=== PATIENT | female | born 1950 | race Caucasian/White ===

== ENCOUNTER → 2016-12-25 | Day surgery (SDC) | payer OTHER ==
[2016-11-21 10:01] VITALS: Ht 162.6 cm; Wt 58.2 kg
[~2016-12-25] VITALS: Ht 162.6 cm; Wt 58.2 kg
[~2016-12-25] MED LIST: ALBU1AER9 INH; ASPI81TA28 PO; B-COCAP2 PO; BACTRIM PO; BUPIVACAINE 0.25% 2.5MG/ML PF 10 ML VIAL INFIL ONE; BUPR-79 PO; CHOL400C10 PO; CMD5 PO; FURO80TA63 PO; LABE100T16 PO; LANS30CA63 PO; LEVO50TA6 PO; LIDOCAINE HCL 1% 20 ML VIAL ONE; LIDOCAINE HCL 1% MPF 5 ML VIAL ONE; METO50TA16 PO; METOPROLOL PO; OMEG10007 PO; TIOTCAP INH; WARF7.5T PO
--- NOTE | 2016-12-25 15:22 | History & Physical Bridge - [place] ---
H&P Re-Evaluation Bridge Note: I have examined the patient, reviewed the History & Physical and in the interval since the performance of the History & Physical I have noted the following changes of clinical significance: No changes noted
--- NOTE | 2016-12-25 15:56 | Discharge Instructions ---
Discharge Instructions Date of Service Dec 25, 2016. Visit Reason for Visit: Low Back Pain Discharge Discharge Diagnosis / Problem: chronic low back pain Discharge Goals Goal(s): Decrease discomfort, Improve function Activity Recommendations Activity Limitations: resume your previous activity Anesthesia . Post Anesthesia Instructions: If you have had General Anesthesia or IV Sedation: * Do not drive today. * Resume driving when surgeon permits. * Do not make important decisions or sign legal documents today. * Call surgeon for: 1. Temperature elevations greater than 101 degrees F. 2. Uncontrollable pain. 3. Excessive bleeding. 4. Persistent nausea and vomiting. 5. Medication intolerance (nausea, vomiting or rash). * For nausea and vomiting use only clear liquids such as: tea, soda, bouillon until nausea subsides, then gradually increase diet as tolerated. * If you have any concerns or questions, call your surgeon's office. If physician is unavailable and it is an emergency, call 911 or go to the nearest emergency room. . Diet Recommendations Recommended Home Diet: resume previous diet Procedures Procedures Performed: Bilateral L4-5 and L5-S1 Medial Branch Blocks Pending Studies Studies pending at discharge: no Medical Emergencies . Who to Call and When: Medical Emergencies: If at any time you feel your situation is an emergency, please call 911 immediately. . Non-Emergent Contact Non-Emergency issues call your: Specialist . . "Provider Documentation" section prepared by Kiran Martinez.
[2016-12-25 16:14] VITALS: BP 123/76; PULSE 64; O2SAT 99
--- NOTE | 2016-12-25 16:32 | OPERATIVE REPORT ---
DATE OF OPERATION: 12/25/2016 PREOPERATIVE DIAGNOSES: Chronic low back pain and lumbar facet arthropathy bilaterally at L4-L5 and L5-S1. POSTOPERATIVE DIAGNOSES: Same. PROCEDURE: Bilateral L4-L5 and L5-S1 medial branch blocks. INDICATIONS: The patient is a 66-year-old white female who has had problems with low back area. She is localizing her pain to the L5-S1 region bilaterally, worse with twisting and standing. Imaging revealed significant facet joint signal throughout her lower lumbar region, most pronounced at L4-L5, also L5-S1. She presents today for bilateral L4-L5 and L5-S1 medial branch blocks to confirm that this is indeed generating the intense pain that she has in her back. PHYSICAL EXAMINATION: GENERAL: Pleasant female seated comfortably. MUSCULOSKELETAL: Lumbar paraspinal muscles were palpated, particularly point tender over L5-S1 and also L4-L5. This pain got worse with extension, extension rotation. She had no focal weakness of the lower extremity and negative sacral distraction and compression maneuver. CONSENT: Verbal and written consent was obtained from the patient. Risks and benefits were reviewed. Risks include, but are not limited to abscess and allergic reaction. She wishes to proceed. DESCRIPTION OF PROCEDURE: The patient was taken back to the special procedures room of [facility]. She was maintained in a prone position. Backside was cleansed with Betadine x3 and a dry sterile dressing was applied. Fluoroscope was used to identify the left L4 transverse process junction, the left L5 transverse process junction and the left sacral ala. The overlying skin was anesthetized with 1.25 mL of lidocaine 1% with a 25-gauge 1.5-inch needle. A 25-gauge 3.5-inch spinal needle was then placed contacting the bony target at each site. She then underwent injection after negative aspiration of 1 mL of bupivacaine 0.25%. Then, the right L5 transverse process junction, the right sacral ala and the right L4 transverse process junction were fluoroscopically identified. Overlying skin anesthetized again with 1.25 mL of lidocaine 1% with a 25-gauge 1.5-inch needle at each site. She then underwent placement of a 25-gauge 3.5-inch spinal needle at each site contacting bone under fluoroscopic guidance. She then underwent injection after negative aspiration of 1 mL of bupivacaine 0.25% at L4-L5 transverse process and at the sacral ala. DISPOSITION: 1. The patient is taken out into the discharge recovery area, where she will be discharged home once discharge criteria have been met. 2. Follow up in the [facility] office in 2-4 weeks. I attest to the content of the Intraoperative Record and any orders documented therein. Any exceptio ns are noted below.
== END | disposition home or self-care (01) ==
LOC: X.SURG 14:02
PROVIDERS: ATTEND Physical Medicine & Rehabilitation
DX: M54.5 Low back pain (principal); M51.86 Other intervertebral disc disorders, lumbar region; F41.9 Anxiety disorder, unspecified; J45.909 Unspecified asthma, uncomplicated; F32.9 Major depressive disorder, single episode, unspecified; N18.6 End stage renal disease; E03.9 Hypothyroidism, unspecified; M06.9 Rheumatoid arthritis, unspecified; Z87.81 Personal history of (healed) traumatic fracture; Z90.710 Acquired absence of both cervix and uterus; Z90.49 Acquired absence of other specified parts of digestive tract; Z88.0 Allergy status to penicillin; Z91.041 Radiographic dye allergy status; Z88.8 Allergy status to other drugs, medicaments and biological substances; Z82.0 Family history of epilepsy and other diseases of the nervous system

== ENCOUNTER → 2017-01-07 | Outpatient (CLI) | payer OTHER ==
[~2017-01-07] MED LIST changes: -BACTRIM PO; -BUPIVACAINE 0.25% 2.5MG/ML PF 10 ML VIAL INFIL ONE; -LIDOCAINE HCL 1% 20 ML VIAL ONE; -LIDOCAINE HCL 1% MPF 5 ML VIAL ONE
--- NOTE | 2017-01-07 11:27 | DIAGNOSTIC IMAGING REPORT ---
ULTRASOUND ABDOMEN COMPLETE CLINICAL HISTORY: Generalized abdominal pain. COMPARISON STUDY: Abdominal CT dated 09/13/2015. Abdominal ultrasound dated 09/13/2015 and 03/07/2015. TECHNIQUE: Real-time, grayscale, and color flow sonography of the abdomen was performed. Images are reviewed in the transverse and longitudinal planes. FINDINGS: Liver: The liver is normal in size and echotexture. There is central intrahepatic biliary ductal dilatation. The main portal vein is patent. Gallbladder: The gallbladder is surgically absent. The common bile duct measures up to 0.8 cm in diameter. Pancreas: A 9 mm cystic focus is again suggested in the pancreatic head. This is unchanged from 2015 and may represent a small IPMN. Visualized portions of the pancreatic head and body are otherwise normal in appearance. The splenic vein is patent. Spleen: The spleen is normal in size and echotexture, measuring 9.8 cm in length. Kidneys: The kidneys are atrophic. There is no hydronephrosis. The right kidney measures 6.3 cm in length and the left kidney measures 7.8 cm in length. No shadowing calculi are identified. Abdominal vasculature: Visualized portions of the abdominal aorta are normal in caliber. Ascites: None. IMPRESSION: 1. No acute sonographic abnormality is identified. 2. Status post cholecystectomy. 3. The kidneys are atrophic. Electronically signed by: Max Alaniz M.D. 01/07/2017 11:25 AM Dictated Date/Time: 01/07/2017 11:22 AM
== END | disposition home or self-care (01) ==
LOC: C.ULTR 10:28
PROVIDERS: ATTEND Internal Medicine Gastroenterology
DX: R11.2 Nausea with vomiting, unspecified (principal); R10.13 Epigastric pain; N26.1 Atrophy of kidney (terminal)

== ENCOUNTER → 2017-01-13 | Day surgery (SDC) | payer OTHER ==
[2017-01-08 14:37] VITALS: BMI 22.0
[~2017-01-13] VITALS: Ht 162.6 cm; Wt 58.2 kg
[~2017-01-13] MED LIST changes: +LIDOCAINE HCL 2% 2 ML VIAL (20MG/ML) ONE; +METOPROLOL TARTRATE 1 MG/ML VIAL ONE; +PROPOFOL IV EMULSION 10 MG/ML 20 ML VIAL IV ONE
[2017-01-13 12:12] VITALS: Ht 162.6 cm; Wt 58.2 kg
--- NOTE | 2017-01-13 13:04 | Endo History and Physical ---
History & Physical Date of Service: Jan 13, 2017. Chief Complaint: nausea /vomiting epigastric pain Referring Physician: Dr Silverman History of Present Illness For EGD Past Medical History Atrial Fibrillation, Osteoporosis, Arthritis, Asthma, Anxiety, Reflux, Hypertension, COPD, Thyroid Disease, Kidney Disease, CVA/TIA, Depression, [place] Past Surgical History Hx Cardiac Surgery: Yes (HEART CATH, NO STENT) Hx Internal Defibrillator: Yes (AMRIK, OLIVER BSO, APPY, LAPAROTOMY FOR BENIGN TUMOR) Hx Pacemaker: No Hx Abdominal Surgery: No Hx of Implantable Prosthesis: No Hx Post-Op Nausea and Vomiting: No Hx Cancer Surgery: No Hx Thoracic Surgery: No Hx Orthopedic: Yes (C3-5 FUSION (LIMITED L-R AND DOWN), RT FOOT X5, R THUMB JNT REPLACEMENT) Hx Urinary Tract Surgery: No (LT/RT CTR) Family History IBD Social History Smoking Status: Former Smoker Hx Substance Use: No Hx Alcohol Use: No Allergies Coded Allergies: Famotidine (Verified Allergy, Severe, SHORTNESS OF BREATH, 01/08/17) Penicillins (Verified Allergy, Severe, SHORTNESS OF BREATH, 01/08/17) edema and airway Prednisone (Verified Allergy, Severe, rash, 01/08/17) "RED ALL OVER, SEVERE ITCHING" Deflazacort (Verified Allergy, Intermediate, HIVES TO ADVACORT, 01/08/17) "RED ALL OVER, FELT LIKE I WAS ON FIRE" Iodinated Diagnostic Agents (Verified Allergy, Intermediate, HIVES, ) Pentazocine (Verified Allergy, Intermediate, HIVES, 01/08/17) Current Medications Reported Home Medications Medications Dose Route/Sig Max Daily Dose Days Date Category Dose Instructions [Metoprolol] PO UD 01/08/17 Reported NEW PRESCRIPTION PATIENT RECEIVING 01-09-17 AND UNSURE DOSAGE OR INSTRUCTIONS Coumadin (Warfarin Sodium) 7.5 Mg Tab 7.5 Mg PO 5XWK 11/21/16 Reported SUN,TUES,WED,THURS,SAT Vitamin D 400 (Cholecalciferol) 400 Unit Chw Unknown Dose PO WK 02/08/16 Reported Sundays Nephrocaps (Vitamin B Complex/Vit C/Folic Acid) 1 Cap Cap 1 Cap PO QPM 02/08/16 Reported Wellbutrin Sr (Bupropion HCl) 150 Mg Ertab 150 Mg PO QAM 11/28/15 Reported Levothyroxine Sodium 50 Mcg Tab 1 Tab PO QAM 09/13/15 Reported Spiriva Handihaler (Tiotropium [place]) 18 Mcg/ Aerp 1 Cap INH QAM 05/19/15 Reported Proair Hfa (Albuterol Sulfate) 108 Mcg/ Aer 2 Puffs INH QID PRN 05/19/15 Reported Prevacid (Lansoprazole) 30 Mg Cap 30 Mg PO QAM 03/23/15 Reported Normodyne (Labetalol HCl) 100 Mg Tab 200 Mg PO BID 03/23/15 Reported Coumadin (Warfarin Sod) 5 Mg Tab 5 Mg PO 2XWK 11/30/14 Reported MON,FRI Aspirin Ec (Aspirin) 81 Mg Tab 81 Mg PO HS 07/04/14 Reported [place]-3 (Fish Oil) 1 Ea Cap 1 Cap PO BID 07/04/14 Reported Vital Signs Weight (Kilograms): 58.18 Height (Feet): 5 Height (Inches): 4 Date Time Temp Pulse Resp B/P Pulse Ox O2 Delivery O2 Flow Rate FiO2 01/13/17 12:29 36.6 71 18 155/71 94 Room Air Physical Exam General Appearance: WD/WN Respiratory/Chest: Respiratory effort: no dyspnea Cardiovascular: Heart Auscultation: RRR Abdomen: Inspection & Palpation: soft Assessment and Plan Nausea for EGD
[2017-01-13 13:45] LABS: BUN/CREATININE RATIO 10.3 (10-20); CALCIUM 8.7 mg/dl (8.5-10.1); CREATININE 2.7 mg/dl (0.60-1.20); POTASSIUM 3.6 mmol/L (3.5-5.1)
--- NOTE | 2017-01-13 14:07 | Discharge Instructions ---
Endoscopy Patient Instructions Date / Procedure(s) Performed Jan 13, 2017. EGD Allergy Information Coded Allergies: Famotidine (Verified Allergy, Severe, SHORTNESS OF BREATH, 01/08/17) Penicillins (Verified Allergy, Severe, SHORTNESS OF BREATH, 01/08/17) edema and airway Prednisone (Verified Allergy, Severe, rash, 01/08/17) "RED ALL OVER, SEVERE ITCHING" Deflazacort (Verified Allergy, Intermediate, HIVES TO ADVACORT, 01/08/17) "RED ALL OVER, FELT LIKE I WAS ON FIRE" Iodinated Diagnostic Agents (Verified Allergy, Intermediate, HIVES, ) Pentazocine (Verified Allergy, Intermediate, HIVES, 01/08/17) Discharge Date / Findings Jan 13, 2017. Normal EGD Medication Instructions Stopped Medication(s): coumadin stopped on Wednesday 01/10 Restart Stopped Medication(s): resume meds Reported Home Medications Medications Dose Route/Sig Max Daily Dose Days Date Category Dose Instructions [Metoprolol] PO UD 01/08/17 Reported NEW PRESCRIPTION PATIENT RECEIVING 01-09-17 AND UNSURE DOSAGE OR INSTRUCTIONS Coumadin (Warfarin Sodium) 7.5 Mg Tab 7.5 Mg PO 5XWK 11/21/16 Reported SUN,,FRI,,SAT Vitamin D 400 (Cholecalciferol) 400 Unit Chw Unknown Dose PO WK 02/08/16 Reported Sundays Nephrocaps (Vitamin B Complex/Vit C/Folic Acid) 1 Cap Cap 1 Cap PO QPM 02/08/16 Reported Wellbutrin Sr (Bupropion HCl) 150 Mg Ertab 150 Mg PO QAM 11/28/15 Reported Levothyroxine Sodium 50 Mcg Tab 1 Tab PO QAM 09/13/15 Reported Spiriva Handihaler (Tiotropium [place]) 18 Mcg/ Aerp 1 Cap INH QAM 05/19/15 Reported Proair Hfa (Albuterol Sulfate) 108 Mcg/ Aer 2 Puffs INH QID PRN 05/19/15 Reported Prevacid (Lansoprazole) 30 Mg Cap 30 Mg PO QAM 03/23/15 Reported Normodyne (Labetalol HCl) 100 Mg Tab 200 Mg PO BID 03/23/15 Reported Coumadin (Warfarin Sod) 5 Mg Tab 5 Mg PO 2XWK 11/30/14 Reported MON,FRI Aspirin Ec (Aspirin) 81 Mg Tab 81 Mg PO HS 07/04/14 Reported [place]-3 (Fish Oil) 1 Ea Cap 1 Cap PO BID 07/04/14 Reported Provider Instructions Activity Restrictions - No exercising or heavy lifting for 24 hours. - Do not drink alcohol the day of the procedure. - Do not drive a car or operate machinery until the day after the procedure. - Do not make any important decisions or sign important papers in 24 hours after the procedure. Following Day: - Return to full activity which may include returning to work/school. Diet Start your diet with liquids and light foods (jello, soup, juice, toast). Then eat your usual diet if not nauseated. Treatment For Common After Affects For mild abdominal pain, bloating, or excessive gas: - Rest - Eat lightly - Lie on right side Follow-Up Information Follow-up with Dr Silverman as scheduled Anesthesia Information What You Should Know You have had a procedure that required some medicine to reduce anxiety and discomfort. This treatment is called moderate sedation. After receiving the treatment, you may be sleepy, but you will be able to breathe on your own. The effects of the treatment may last for several hours. Follow these instructions along with Activity/Diet recommendations noted above: * Do NOT do anything where dizziness or clumsiness would be dangerous. * Rest quietly at home today, then you can be up and about tomorrow. * Have a responsible person stay with you the rest of today. * You may have had an I.V. today. If so, you may take the dressing off later today. Recommendations Call your doctor if: * Trouble breathing * Continuous vomiting for more than 24 hours * Temperature above 101 degrees * Severe abdominal pain or bloating * Pain not relieved by pain medicine ordered * There is increased drainage or redness from any incision * A large amount of rectal bleeding greater than 2-3 tablespoons. (If you had a polyp/s removed or have hemorrhoids, a small amount of blood - from the rectum is to be expected.) * You have any unanswered questions or concerns. IN THE EVENT OF A SERIOUS EMERGENCY, GO TO THE NEAREST EMERGENCY ROOM Your discharge instructions were prepared by provider Osmin Wong. Patient Instructions Signature Page Milly Tubbs Patient (or Guardian) Signature/Date: I have read and understand the instructions given to me by my caregivers. Caregiver/RN/Doctor Signature/Date: The above-named patient and/or guardian has received patient instructions on this date. + Original Patient Signature Page (only) stays with chart. Please make copy for patient.
--- NOTE | 2017-01-13 14:14 | GI REPORT ---
Procedure Date: 01/13/2017 1:04 PM Procedure: Upper GI endoscopy Indications: Epigastric abdominal pain, Nausea with vomiting Medicines: Propofol total dose 180 mg IV, Metoprolol 5 mg IV, Lidocaine 40 mg IV Complications: No immediate complications. Estimated Blood Loss: Estimated blood loss was minimal. Procedure: Pre-Anesthesia Assessment: - Prior to the procedure, a History and Physical was performed, and patient medications, allergies and sensitivities were reviewed. The patient's tolerance of previous anesthesia was reviewed. - The risks and benefits of the procedure and the sedation options and risks were discussed with the patient. All questions were answered and informed consent was obtained. After obtaining informed consent, the endoscope was passed under direct vision. Throughout the procedure, the patient's blood pressure, pulse, and oxygen saturations were monitored continuously. The scope was introduced through the mouth, and advanced to the second part of duodenum. The upper GI endoscopy was accomplished without difficulty. The patient tolerated the procedure well. Findings: Biopsies were taken with a cold forceps in the 2nd part of the duodenum for histology. The esophagus was normal. The stomach was normal. The examined duodenum was normal. Impression: - Normal esophagus. - Normal stomach. - Normal examined duodenum. - Biopsies were taken with a cold forceps for histology in the 2nd part of the duodenum. Recommendation: - Discharge patient to home (ambulatory). - Continue present medications. - Await pathology results. - Return to GI office as previously scheduled. Osmin Wong M.D. Osmin Wong MD 01/13/2017 2:13:20 PM This report has been signed electronically. Note Initiated On: 01/13/2017 1:04 PM I attest to the content of the Intraoperative Record and orders documented therein, exceptions below
[2017-01-13 14:46] VITALS: BP 103/65; PULSE 80; O2SAT 98
--- NOTE | 2017-01-13 16:25 | Anesthesiology Progress Note ---
Anesthesia Post Op Note Date & Time Jan 13, 2017 at 15:11 Vital Signs Pain Intensity: 0 Vital Signs Past 12 Hours Date Time Temp Pulse Resp B/P Pulse Ox O2 Delivery O2 Flow Rate FiO2 01/13/17 14:46 80 18 103/65 98 Room Air 01/13/17 14:31 87 18 114/60 98 Mask 2 01/13/17 14:17 97 Mask 5 01/13/17 14:16 97 18 113/55 92 Room Air 01/13/17 12:29 36.6 71 18 155/71 94 Room Air Notes Mental Status: alert / awake / arousable, participated in evaluation Pt Amnestic to Procedure: Yes Nausea / Vomiting: adequately controlled Pain: adequately controlled Airway Patency, RR, SpO2: stable & adequate BP & HR: stable & adequate Hydration State: stable & adequate Anesthetic Complications: no major complications apparent The patient is a 66 y/o female with a h/o Asthma, HTN, paroxysmal Afib, GERD , ulcers, OA, CVA ( 15 years ago), hypothyroidism, ESRD on HD ([facility]) s/p EGD with Dr. Wong. Preoperatively, the patient was noted to be in atrial fibrillation. She says she can feel when she goes into atrial fibrillation as she has had paroxysmal atrial fibrillation for which she is on Coumadin for at least two years. She believes her last episode was at least one month ago and can last up to several hours before spontaneously converting to NSR. She was asymptomatic denying any chest pain, shortness of breath, lightheaded or dizziness. Her last dose of Coumadin was on Friday (01/10/17). The patient's HR was fluctuating between 80s and low 100s. She did take her metoprolol today. She had a stress test 01/12 which showed no ischemia EF 55-60% and a cardiac cath in 2013 showing minimal plaque with no occlusive disease. I tried to call the patient's PCP Jennifer Silverman regarding the patient's HR however she was out of the office. I was only able to get a hold of another PA , Anabella Saeed who saw the patient only once for bronchitis. She stated she was not very familiar with the patient and confirmed that the patient does not have a compounder and that the Coumadin clinic manages her anticoagulation. I therefore spoke to Dr. Dupree regarding the patient as her HR would occasionally rise into the low 110s. He stated that as long as she remains asymptomatic that no further evaluation or treatment would be necessary and recommended that she follow up with her Coumadin clinic for recommendations on when to restart her Coumadin. During the procedure the patient was given metoprolol 5mg IV which improved her HR to the 80s where it remained throughout her time in recovery as well. Her BP remained stable in the 120s/60s. I spoke to the patient and her daughter in recovery. I informed them that they should call the Coumadin clinic today to get instructions on when and how to restart her Coumadin as she may require a bridge depending on her last INR. I stressed the importance of this explaining to the patient and her daughter that the patient is at increased risk of stroke due to her atrial fibrillation and needs to ensure she is properly anticoagulated to prevent stroke. I instructed the patient to call her PCP for a follow up appointment to ensure she remained rate controlled and/ or reverted into NSR. She understands and agrees. I also instructed the patient to go the ED if she experiences any chest pain, shortness of breath, rapid heart rate, lightheaded or dizziness, changes in vision, confusion or with any other concerns. She understands and agrees.
== END | disposition home or self-care (01) ==
LOC: C.GI 11:59
PROVIDERS: ATTEND Internal Medicine Gastroenterology
DX: R11.2 Nausea with vomiting, unspecified (principal); R10.13 Epigastric pain; I48.91 Unspecified atrial fibrillation; I12.0 Hypertensive chronic kidney disease with stage 5 chronic kidney disease or end stage renal disease; N18.6 End stage renal disease; Z99.2 Dependence on renal dialysis; J44.9 Chronic obstructive pulmonary disease, unspecified; J45.909 Unspecified asthma, uncomplicated; F32.9 Major depressive disorder, single episode, unspecified; Z98.890 Other specified postprocedural states; I25.2 Old myocardial infarction; Z88.0 Allergy status to penicillin; Z90.89 Acquired absence of other organs; Z90.49 Acquired absence of other specified parts of digestive tract; Z86.73 Personal history of transient ischemic attack (TIA), and cerebral infarction without residual deficits; F17.200 Nicotine dependence, unspecified, uncomplicated; Z79.82 Long term (current) use of aspirin; Z79.01 Long term (current) use of anticoagulants

== ENCOUNTER → 2017-01-28 | Outpatient (CLI) | payer OTHER ==
[~2017-01-28] MED LIST changes: -LIDOCAINE HCL 2% 2 ML VIAL (20MG/ML) ONE; -METOPROLOL TARTRATE 1 MG/ML VIAL ONE; -PROPOFOL IV EMULSION 10 MG/ML 20 ML VIAL IV ONE
--- NOTE | 2017-01-28 12:18 | DIAGNOSTIC IMAGING REPORT ---
FLUOROSCOPIC SMALL BOWEL FOLLOW-THROUGH CLINICAL HISTORY: Nausea and vomiting. Chronic constipation and generalized abdominal pain. COMPARISON STUDY: Abdominal CT dated 09/13/2015. TECHNIQUE: An abdominal funeral home associate radiograph was performed. The patient then consumed several cups of thin barium and a small follow-through was performed. Overhead radiographs and spot compression images were obtained. FINDINGS: The abdominal funeral home associate radiograph shows a nonobstructed abdominal bowel gas pattern and significant constipation. No evidence of intraperitoneal free air is seen. Cholecystectomy clips are noted in the right upper quadrant. Phlebolith are identified in the pelvis. The skeletal structures are osteopenic. Chronic deformity of the right ilium is unchanged. There is evidence of previous compression fracture with vertebroplasty involving T12. On the small bowel follow-through the stomach and duodenum appear normal in configuration. There is delayed transit time with contrast identified in the colon at 180 minutes. The small bowel mucosal pattern is normal. There is no evidence of stricture or mass. The distal/terminal ileum are normal in appearance on the spot compression views. Fluoroscopy time: 0.5 minutes. Fluoroscopic images: 4 IMPRESSION: 1. Delayed transit time through the small bowel. Contrast reached the colon at 3 hours. 2. Otherwise unremarkable small bowel follow-through. 3. Constipation. Electronically signed by: Max Alaniz M.D. 01/28/2017 12:16 PM Dictated Date/Time: 01/28/2017 12:14 PM
== END | disposition home or self-care (01) ==
LOC: C.RAD 08:30
PROVIDERS: ATTEND Internal Medicine Gastroenterology
DX: R11.10 Vomiting, unspecified (principal); K59.01 Slow transit constipation

== ENCOUNTER → 2017-04-03 | Day surgery (SDC) | payer OTHER ==
[2017-03-05 15:11] VITALS: Ht 162.6 cm; Wt 58.2 kg
[~2017-04-03] VITALS: Ht 162.6 cm; Wt 58.2 kg
[~2017-04-03] MED LIST changes: -LABE100T16 PO; -METOPROLOL PO
== END ==
LOC: C.PAT 10:56 → EDSTATUS 13:00
PROVIDERS: ATTEND Physical Medicine & Rehabilitation
DX: M54.5 Low back pain (principal)

== ENCOUNTER → 2017-05-05 | Day surgery (SDC) | payer OTHER ==
[2017-04-24 09:09] VITALS: Ht 162.6 cm; Wt 58.2 kg
[~2017-05-05] VITALS: Ht 162.6 cm; Wt 58.2 kg
[~2017-05-05] MED LIST changes: +EpHEDrine SULFATE 50MG/5ML SYR ONE; +LIDOCAINE HCL 2% 2 ML VIAL (20MG/ML) ONE; +PROPOFOL IV EMULSION 10 MG/ML 20 ML VIAL IV ONE
[2017-05-05 13:38] LABS: PROTHROMBIN TIME (PATIENT) 33.9 SECONDS (9.0-12.0)
--- NOTE | 2017-05-05 13:51 | Endo History and Physical ---
History & Physical Date of Service: May 05, 2017. Chief Complaint: pretransplant evaluation Referring Physician: Dr. Wong History of Present Illness For colonoscopy Past Medical History Atrial Fibrillation, Osteoporosis, Arthritis, Asthma, Anxiety, Reflux, Hypertension, COPD, Thyroid Disease, Kidney Disease, CVA/TIA, Depression, [place] Past Surgical History Hx Cardiac Surgery: Yes (HEART CATH NO STENT) Hx Internal Defibrillator: No Hx Pacemaker: No Hx Abdominal Surgery: Yes (AMRIK, OLIVER BSO, APPY, LAPAROTOMY FOR BENIGN TUMOR) Hx of Implantable Prosthesis: No Hx Post-Op Nausea and Vomiting: No Hx Cancer Surgery: No Hx Thoracic Surgery: No Hx Orthopedic: Yes (ACDF C3-5, RT FOOT X 5, RIGHT THUMB JOINT REPLACEMENT) Hx Urinary Tract Surgery: No Family History IBD Social History Smoking Status: Former Smoker Hx Substance Use: No Hx Alcohol Use: No Allergies Coded Allergies: Famotidine (Verified Allergy, Severe, SHORTNESS OF BREATH, 04/24/17) Penicillins (Verified Allergy, Severe, SHORTNESS OF BREATH, 04/24/17) edema and airway Prednisone (Verified Allergy, Severe, rash, 04/24/17) "RED ALL OVER, SEVERE ITCHING" Deflazacort (Verified Allergy, Intermediate, HIVES TO ADVACORT, 04/24/17) "RED ALL OVER, FELT LIKE I WAS ON FIRE" Iodinated Diagnostic Agents (Verified Allergy, Intermediate, HIVES, ) Pentazocine (Verified Allergy, Intermediate, HIVES, 04/24/17) Current Medications Reported Home Medications Medications Dose Route/Sig Max Daily Dose Days Date Category Dose Instructions Lasix (Furosemide) 80 Mg Tab 80 Mg PO BID 04/24/17 Reported Lopressor (Metoprolol Tartrate) 50 Mg Tab 50 Mg PO BID 03/05/17 Reported Coumadin (Warfarin Sodium) 7.5 Mg Tab 7.5 Mg PO 5XWK 11/21/16 Reported SUN,TUES,WED,,SAT Vitamin D 400 (Cholecalciferol) 400 Unit Chw Unknown Dose PO WK 02/08/16 Reported Sundays Nephrocaps (Vitamin B Complex/Vit C/Folic Acid) 1 Cap Cap 1 Cap PO QPM 02/08/16 Reported Wellbutrin Sr (Bupropion HCl) 150 Mg Ertab 150 Mg PO QAM 11/28/15 Reported Levothyroxine Sodium 50 Mcg Tab 1 Tab PO QAM 09/13/15 Reported Spiriva Handihaler (Tiotropium [place]) 18 Mcg/ Aerp 1 Cap INH QAM 05/19/15 Reported Proair Hfa (Albuterol Sulfate) 108 Mcg/ Aer 2 Puffs INH QID PRN 05/19/15 Reported Prevacid (Lansoprazole) 30 Mg Cap 30 Mg PO QAM 03/23/15 Reported Coumadin (Warfarin Sod) 5 Mg Tab 5 Mg PO 2XWK 11/30/14 Reported MON,FRI Aspirin Ec (Aspirin) 81 Mg Tab 81 Mg PO HS 07/04/14 Reported [place]-3 (Fish Oil) 1 Ea Cap 1 Cap PO BID 07/04/14 Reported Vital Signs Weight (Kilograms): 58.18 Height (Feet): 5 Height (Inches): 4 Physical Exam General Appearance: + thin Respiratory/Chest: Respiratory effort: no dyspnea Cardiovascular: Heart Auscultation: RRR Abdomen: Inspection & Palpation: soft Assessment and Plan pretransplant evaluation for colonoscopy
--- NOTE | 2017-05-05 14:51 | Discharge Instructions ---
Endoscopy Patient Instructions Date / Procedure(s) Performed May 05, 2017. Colonoscopy Allergy Information Coded Allergies: Famotidine (Verified Allergy, Severe, SHORTNESS OF BREATH, 04/24/17) Penicillins (Verified Allergy, Severe, SHORTNESS OF BREATH, 04/24/17) edema and airway Prednisone (Verified Allergy, Severe, rash, 04/24/17) "RED ALL OVER, SEVERE ITCHING" Deflazacort (Verified Allergy, Intermediate, HIVES TO ADVACORT, 04/24/17) "RED ALL OVER, FELT LIKE I WAS ON FIRE" Iodinated Diagnostic Agents (Verified Allergy, Intermediate, HIVES, ) Pentazocine (Verified Allergy, Intermediate, HIVES, 04/24/17) Discharge Date / Findings May 05, 2017. polyps, diverticulosis Medication Instructions Restart Stopped Medication(s): resume meds Reported Home Medications Medications Dose Route/Sig Max Daily Dose Days Date Category Dose Instructions Lasix (Furosemide) 80 Mg Tab 80 Mg PO BID 04/24/17 Reported Lopressor (Metoprolol Tartrate) 50 Mg Tab 50 Mg PO BID 03/05/17 Reported Coumadin (Warfarin Sodium) 7.5 Mg Tab 7.5 Mg PO 5XWK 11/21/16 Reported SUN,TU,WED,,SAT Vitamin D 400 (Cholecalciferol) 400 Unit Chw Unknown Dose PO WK 02/08/16 Reported Sundays Nephrocaps (Vitamin B Complex/Vit C/Folic Acid) 1 Cap Cap 1 Cap PO QPM 02/08/16 Reported Wellbutrin Sr (Bupropion HCl) 150 Mg Ertab 150 Mg PO QAM 11/28/15 Reported Levothyroxine Sodium 50 Mcg Tab 1 Tab PO QAM 09/13/15 Reported Spiriva Handihaler (Tiotropium [place]) 18 Mcg/ Aerp 1 Cap INH QAM 05/19/15 Reported Proair Hfa (Albuterol Sulfate) 108 Mcg/ Aer 2 Puffs INH QID PRN 05/19/15 Reported Prevacid (Lansoprazole) 30 Mg Cap 30 Mg PO QAM 03/23/15 Reported Coumadin (Warfarin Sod) 5 Mg Tab 5 Mg PO 2XWK 11/30/14 Reported MON,FRI Aspirin Ec (Aspirin) 81 Mg Tab 81 Mg PO HS 07/04/14 Reported [place]-3 (Fish Oil) 1 Ea Cap 1 Cap PO BID 07/04/14 Reported Provider Instructions Activity Restrictions - No exercising or heavy lifting for 24 hours. - Do not drink alcohol the day of the procedure. - Do not drive a car or operate machinery until the day after the procedure. - Do not make any important decisions or sign important papers in 24 hours after the procedure. Following Day: - Return to full activity which may include returning to work/school. Diet Start your diet with liquids and light foods (jello, soup, juice, toast). Then eat your usual diet if not nauseated. Treatment For Common After Affects For mild abdominal pain, bloating, or excessive gas: - Rest - Eat lightly - Lie on right side Follow-Up Information Follow-up with as scheduled Anesthesia Information What You Should Know You have had a procedure that required some medicine to reduce anxiety and discomfort. This treatment is called moderate sedation. After receiving the treatment, you may be sleepy, but you will be able to breathe on your own. The effects of the treatment may last for several hours. Follow these instructions along with Activity/Diet recommendations noted above: * Do NOT do anything where dizziness or clumsiness would be dangerous. * Rest quietly at home today, then you can be up and about tomorrow. * Have a responsible person stay with you the rest of today. * You may have had an I.V. today. If so, you may take the dressing off later today. Recommendations Call your doctor if: * Trouble breathing * Continuous vomiting for more than 24 hours * Temperature above 101 degrees * Severe abdominal pain or bloating * Pain not relieved by pain medicine ordered * There is increased drainage or redness from any incision * A large amount of rectal bleeding greater than 2-3 tablespoons. (If you had a polyp/s removed or have hemorrhoids, a small amount of blood - from the rectum is to be expected.) * You have any unanswered questions or concerns. IN THE EVENT OF A SERIOUS EMERGENCY, GO TO THE NEAREST EMERGENCY ROOM Your discharge instructions were prepared by provider Osmin Wong. Patient Instructions Signature Page Milly Tubbs Patient (or Guardian) Signature/Date: I have read and understand the instructions given to me by my caregivers. Caregiver/RN/Doctor Signature/Date: The above-named patient and/or guardian has received patient instructions on this date. + Original Patient Signature Page (only) stays with chart. Please make copy for patient.
--- NOTE | 2017-05-05 14:55 | GI REPORT ---
Procedure Date: 05/05/2017 1:59 PM Procedure: Colonoscopy Indications: Preoperative assessment- renal transplant Medicines: Propofol total dose 250 mg IV, Lidocaine 40 mg IV Complications: No immediate complications. Estimated Blood Loss: Estimated blood loss: none. Procedure: Pre-Anesthesia Assessment: - Prior to the procedure, a History and Physical was performed, and patient medications, allergies and sensitivities were reviewed. The patient's tolerance of previous anesthesia was reviewed. - The risks and benefits of the procedure and the sedation options and risks were discussed with the patient. All questions were answered and informed consent was obtained. After I obtained informed consent, the scope was passed under direct vision. Throughout the procedure, the patient's blood pressure, pulse, and oxygen saturations were monitored continuously. The scope was introduced through the anus and advanced to the cecum, identified by appendiceal orifice and ileocecal valve. The colonoscopy was performed without difficulty. The patient tolerated the procedure well. The quality of the bowel preparation was fair. Findings: A few diverticula were found in the sigmoid colon. A 3 mm polyp was found in the transverse colon. The polyp was sessile. The polyp was removed with a cold biopsy forceps. Resection and retrieval were complete. Estimated blood loss: none. A 6 mm polyp was found in the descending colon. The polyp was semi-sessile. The polyp was removed with a hot snare. Resection and retrieval were complete. Estimated blood loss: none. Impression: - Diverticulosis in the sigmoid colon. - One 3 mm polyp in the transverse colon, removed with a cold biopsy forceps. Resected and retrieved. - One 6 mm polyp in the descending colon, removed with a hot snare. Resected and retrieved. Recommendation: - Discharge patient to home (ambulatory). - Continue present medications. - Await pathology results. - Return to primary care physician PRN. Osmin Wong M.D. Osmin Wong MD 05/05/2017 2:55:48 PM This report has been signed electronically. Note Initiated On: 05/05/2017 1:59 PM I attest to the content of the Intraoperative Record and orders documented therein, exceptions below
--- NOTE | 2017-05-05 15:07 | Anesthesiology Progress Note ---
Anesthesia Post Op Note Date & Time May 05, 2017 at 15:07 Vital Signs Pain Intensity: 0 Vital Signs Past 12 Hours Date Time Temp Pulse Resp B/P (MAP) Pulse Ox O2 Delivery O2 Flow Rate FiO2 05/05/17 14:54 70 20 117/41 (66) 99 Room Air 05/05/17 13:59 36.4 67 18 119/57 (77) 99 Room Air Notes Mental Status: alert / awake / arousable, participated in evaluation Pt Amnestic to Procedure: Yes Nausea / Vomiting: adequately controlled Pain: adequately controlled Airway Patency, RR, SpO2: stable & adequate BP & HR: stable & adequate Hydration State: stable & adequate Anesthetic Complications: no major complications apparent
[2017-05-05 15:25] VITALS: BP 154/62; PULSE 68; O2SAT 96
[2017-05-05 15:32] LABS: ISTAT CREATININE 2.7 mg/dl (0.6-1.3); ISTAT HEMOGLOBIN 12.9 g/dl (12.0-16.0); ISTAT IONIZED CALCIUM 1.15 mmol/l (1.12-1.32)
== END | disposition home or self-care (01) ==
LOC: C.GI 12:45
PROVIDERS: ATTEND Internal Medicine Gastroenterology
DX: Z12.11 Encounter for screening for malignant neoplasm of colon (principal); Z76.82 Awaiting organ transplant status; D12.4 Benign neoplasm of descending colon; D12.3 Benign neoplasm of transverse colon; K57.30 Diverticulosis of large intestine without perforation or abscess without bleeding; I48.91 Unspecified atrial fibrillation; I12.0 Hypertensive chronic kidney disease with stage 5 chronic kidney disease or end stage renal disease; N18.6 End stage renal disease; I25.2 Old myocardial infarction; J45.909 Unspecified asthma, uncomplicated; K21.9 Gastro-esophageal reflux disease without esophagitis; E07.9 Disorder of thyroid, unspecified; M81.0 Age-related osteoporosis without current pathological fracture; F41.9 Anxiety disorder, unspecified; F32.9 Major depressive disorder, single episode, unspecified; Z87.891 Personal history of nicotine dependence; Z86.73 Personal history of transient ischemic attack (TIA), and cerebral infarction without residual deficits; Z83.79 Family history of other diseases of the digestive system; Z79.01 Long term (current) use of anticoagulants; Z79.82 Long term (current) use of aspirin; Z79.899 Other long term (current) drug therapy

== ENCOUNTER 2019-03-11 10:27 | Inpatient (IN) ==
[2019-03-11 11:25] LABS: Basophils # (auto) 0.04 K/uL (0-0.2); Basophils % (auto) 0.4 %; Eosinophils # (auto) 0.63 K/uL (0-0.5); Eosinophils % (auto) 5.9 %; Hematocrit (blood only) 40.6 % (37-47); Hemoglobin 14.8 g/dL (12.0-16.0); Immature Granulocytes # (auto) 0.02 K/uL (0.00-0.02); Immature Granulocytes % (auto) 0.2 %; Lymphocytes # (auto) 3.29 K/uL (1.2-3.4); Lymphocytes % (auto) 30.7 %; Mean Corpuscular Hgb Conc 36.5 g/dL (32-36); Mean Corpuscular Volume 91.2 fL (80-100); Mean Platelet Volume 9.1 fL (7.4-10.4); Monocytes # (auto) 0.61 K/uL (0.11-0.59); Monocytes % (auto) 5.7 %; Neutrophils # (auto) 6.13 K/uL (1.4-6.5); Neutrophils % (auto) 57.1 %; Platelet Count 337 K/uL (130-400); RDW Coefficient of Variation 12.6 % (11.5-14.5); RDW Standard Deviation 41.9 fL (36.4-46.3); Red Blood Count 4.45 M/uL (4.2-5.4); White Blood Count 10.72 K/uL (4.8-10.8)
--- NOTE | 2019-03-11 11:38 | Emergency Department Note ---
History of Present Illness General Chief complaint: Rectal Pain Stated complaint: COMPLETE RECTAL PROLAPSE Time Seen by Provider: 03/11/19 10:52 History of Present Illness Maximum Pain Intensity: 4 This is a 68-year-old female that presents to the emergency department that is currently undergoing peritoneal dialysis with complaints of "complete rectal prolapse". The patient notes that she was on hemodialysis for about 3.5 years and beginning 3 weeks ago was transitioned to peritoneal dialysis. She completes this on her own, 4 times per day. She states that there has been more fluid recommended to be put back into the abdomen and over the past week and a half she has been experiencing rectal prolapse. She states that yesterday the region was prolapsed for pretty much the entire day and she was incontinent at times and had soaked her pants. She states that initially she had an appointment set up with GI in a few weeks but had this changed to this Friday. She was evaluated this past Friday at the emergency department in [place]. She notes that she was given IV Lasix and potassium. She then was sent home. She notes that she is worsening therefore believes she cannot make it until she sees on Friday because of the discomfort and such. She also notes abdominal pain just above the umbilicus as well. She has decreased p.o. and oral intake. She also notes no true bowel movement for several days. Home Medications Home Medications Medication Instructions Recorded Confirmed Type Amitiza 24 mcg PO BID 07/03/18 03/11/19 History Spiriva with HandiHaler 1 cap INHALATION QAM 07/03/18 03/11/19 History Symbicort 2 puff INHALATION BID 07/03/18 03/11/19 History furosemide [Lasix] 80 mg PO BID 07/03/18 03/11/19 History lansoprazole 30 mg PO QAM 07/03/18 03/11/19 History levothyroxine 50 mcg PO QAM 07/03/18 03/11/19 History omega 4-qvn-eat-fish oil [Fish Oil] 1,000 mg PO BID 07/03/18 03/11/19 History ondansetron HCl [Zofran] 8 mg PO BID PRN 07/03/18 03/11/19 History warfarin [Coumadin] 5 mg PO MOWEFR 07/03/18 03/11/19 History warfarin [Coumadin] 7.5 mg PO SUTUTHSA 07/03/18 03/11/19 History bupropion HCl 300 mg PO DAILY 03/11/19 03/11/19 History diltiazem HCl 180 mg PO DAILY 03/11/19 03/11/19 History hydrocodone-acetaminophen 1 tab PO TID PRN 03/11/19 03/11/19 History lactulose 15 ml PO HS 03/11/19 03/11/19 History wkdjhevg-kvi-HQ-Ca carb-vit K 1 tab PO DAILY 03/11/19 03/11/19 History [Women's 50 Plus Multivitamin] potassium chloride 20 meq PO DAILY 03/11/19 03/11/19 History ropinirole 1.5 mg PO HS 03/11/19 03/11/19 History tizanidine 2 mg PO DAILY PRN 03/11/19 03/11/19 History Allergies Allergy/AdvReac Type Severity Reaction Status Date / Time famotidine Allergy Severe SHORTNESS Verified 03/11/19 12:02 OF BREATH Penicillins Allergy Severe SHORTNESS Verified 03/11/19 12:02 OF BREATH prednisone Allergy Severe rash Verified 03/11/19 12:02 deflazacort Allergy Intermediate HIVES TO Verified 03/11/19 12:02 ADVACORT Iodinated Contrast- Oral and Allergy Intermediate HIVES Verified 03/11/19 12:02 IV Dye pentazocine Allergy Intermediate HIVES Verified 03/11/19 12:02 Past Med/Surg History Medical History Constipation (Chronic) Peritoneal dialysis catheter in place (Chronic) ESRD needing dialysis (Chronic) Atrial fibrillation (Chronic) HTN (hypertension) (Chronic) COPD (chronic obstructive pulmonary disease) (Chronic) GERD (gastroesophageal reflux disease) (Chronic) Hypothyroidism (Chronic) Depression (Chronic) Anxiety Atrial fibrillation TAKES COUMADIN. FOLLOWS WITH DR. HOBSON Chronic back pain Chronic kidney disease STAGE 4-5 KIDNEY DISEASE Chronic obstructive pulmonary disease Depression GERD (gastroesophageal reflux disease) Hemodialysis patient MWF. [facility] Hx of peptic ulcer Hypothyroidism Kidney transplant candidate Osteoarthritis Pulmonary embolism 3 YEARS AGO Stroke (~25 YEARS AGO) MILD MEMORY LOSS Surgical History History of appendectomy (Chronic) S/P cholecystectomy (Chronic) S/P OLIVER-BSO (Chronic) S/P cataract surgery (Chronic) H/O foot surgery (Chronic) H/O neck surgery (Chronic) History of carpal tunnel surgery (Chronic) Fusion of spine C3-5 FUSION. LIMITED WITH SIDE TO SIDE MOVEMENT. UP AND DOWN WITH NO PROBLEMS H/O foot surgery RIGHT FOOT History of cardiac cath ~3 YEARS AGO. NO STENTS. [place] History of carpal tunnel release BILATERAL History of cataract surgery BILATERAL History of cholecystectomy LAP History of colonoscopy History of esophagogastroduodenoscopy (EGD) History of hysterectomy OLIVER WITH BSO History of kyphoplasty T12 LEVEL (3 YEARS AGO) Hx of lumpectomy NEGATIVE - LEFT BREAST S/P arteriovenous (AV) fistula creation LEFT ARM S/P wrist surgery RIGHT Social History Preferred Language: Kyrgyz Communication Ability: Effective Railroad Crossing Protection Maintainer Required: No Beliefs That Will Affect Care: None Current Living Situation: Alone Other Information That Helps Us Care for You: No Feels Safe at Home: Yes Safety Concerns: Feels Safe At This Time Smoking Status: Former smoker Tobacco Type: cigarettes Do You Dip or Chew Tobacco: No Smoking End Date: 2010 Second Hand Exposure: No Tobacco Cessation Education Requested by Patient: No Hx Alcohol Use: No Hx Substance Use: No Review of Systems A total of 10 systems reviewed and were otherwise negative Physical Exam Vital Signs Vital Signs - 24 hr 03/11/19 10:33 03/11/19 11:43 03/11/19 13:00 Temperature 36.7 C Temperature Source Oral Sepsis Recent Fever Within 48 Hours No Sepsis New/Unexplained Change in Mental Status No Sepsis Action Taken by Nursing No Action Required Pulse Rate 73 Pulse Rate [Finger] 88 76 Pulse Rhythm Regular Pulse Strength Normal Respiratory Rate 18 17 16 Respiratory Effort / Characteristics Non-Labored Spontaneous Respiratory Depth Normal Respiratory Pattern Regular Blood Pressure 147/66 H Blood Pressure [Right Arm] 137/57 L 140/82 Blood Pressure Mean 93 Blood Pressure Mean [Right Arm] 83 101 Blood Pressure Position Sitting Pulse Oximetry 96 95 98 Oxygen Delivery Method Room Air Room Air Room Air 03/11/19 13:55 Temperature Temperature Source Sepsis Recent Fever Within 48 Hours Sepsis New/Unexplained Change in Mental Status Sepsis Action Taken by Nursing Pulse Rate Pulse Rate [Finger] Pulse Rhythm Pulse Strength Respiratory Rate Respiratory Effort / Characteristics Respiratory Depth Respiratory Pattern Blood Pressure Blood Pressure [Right Arm] Blood Pressure Mean Blood Pressure Mean [Right Arm] Blood Pressure Position Pulse Oximetry 96 Oxygen Delivery Method Room Air VITAL SIGNS - Vital signs and nursing notes were reviewed. Stable and afebrile. GENERAL - 68-year-old female appearing her stated age who is in no acute distress. Communicates well with provider and answers questions appropriately. SKIN - Without rashes. No meningeal or petechial rash. HEAD - NC/AT. EYES - PERRL with EOMI bilaterally. Sclera anicteric. EARS - No deformities of external structures noted on gross examination bilaterally. NOSE - Midline and without cyanosis. No epistaxis or purulent drainage noted. MOUTH/OROPHARYNX - Without perioral cyanosis. NECK - Neck with FROM. No nuchal rigidity. LUNGS - Chest wall symmetric without accessory muscle use, intercostals retractions, or central cyanosis. Normal vesicular breath sounds CTA B/L. No wheezes, rales, or rhonchi appreciated. CARDIAC - RRR with S1/S2. No murmur, rubs, or gallops appreciated. ABDOMEN - Abdominal contour normal without pulsations or visible masses. BS normoactive all four quadrants. No masses. No ascites. There is a peritoneal dialysis catheter present in the right lower quadrant without any signs of infection. RECTAL: With RN female hand shaker, rectal region does not reveal prolapse. A few small specks of blood is noted. There is fullness to the rectal region to inspection. EXTREMITIES - No clubbing or peripheral cyanosis. No pretibial edema present. +5/5 strength noted in UE/LE bilaterally. NEUROLOGIC - Cranial nerves II through XII grossly intact. PSYCH - A&O, and cooperates fully with examiner. Pt is very pleasant and interacts well with examiner. Course Administered Medications Discontinued Medications Hydromorphone HCl (Dilaudid) 0.25 mg IV NOW STA Stop: 03/11/19 14:39 Last Admin: 03/11/19 14:51 Dose: 0.25 mg Documented by: [id number] Hydromorphone HCl (Dilaudid) 0.25 mg IV ONE ONE Stop: 03/11/19 15:49 Last Admin: 03/11/19 15:57 Dose: 0.25 mg Documented by: [id number] Ceftriaxone Sodium (Rocephin) 1,000 mg in 50 mls @ 100 mls/hr IV NOW STA Stop: 03/11/19 14:23 Last Infusion: 03/11/19 15:32 Dose: 0 mls/hr Documented by: [id number] Admin: 03/11/19 14:29 Dose: 100 mls/hr Documented by: [id number] Medical Decision Making Laboratory Data Result diagrams: 03/11/19 11:13 03/11/19 11:13 Lab Results 03/11/19 03/11/19 03/11/19 Range/Units 11:13 11:13 11:13 WBC 10.72 (4.8-10.8) K/uL RBC 4.45 (4.2-5.4) M/uL Hgb 14.8 (12.0-16.0) g/dL Hct 40.6 (37-47) % MCV 91.2 (80-100) fL MCH 33.3 (25-34) pg MCHC 36.5 H (32-36) g/dL RDW Std Deviation 41.9 (36.4-46.3) fL RDW Coeff of Monisha 12.6 (11.5-14.5) % Plt Count 337 (130-400) K/uL MPV 9.1 (7.4-10.4) fL Immature Gran % (Auto) 0.2 % Neut % (Auto) 57.1 % Lymph % (Auto) 30.7 % [place] % (Auto) 5.7 % Eos % (Auto) 5.9 % Baso % (Auto) 0.4 % Immature Gran # (Auto) 0.02 (0.00-0.02) K/uL Neut # (Auto) 6.13 (1.4-6.5) K/uL Lymph # (Auto) 3.29 (1.2-3.4) K/uL [place] # (Auto) 0.61 H (0.11-0.59) K/uL Eos # (Auto) 0.63 H (0-0.5) K/uL Baso # (Auto) 0.04 (0-0.2) K/uL PT 60.9 H (9.0-12.0) Seconds INR 6.8 H* (0.9-1.1) APTT 64.4 H* (21.0-31.0) Seconds PTT Ratio 2.4 Sodium 135 L (136-145) mmol/L Potassium 3.8 (3.5-5.1) mmol/L Chloride 99 (98-107) mmol/L Carbon Dioxide 28 (21-32) mmol/L Anion Gap 8.0 (3-11) BUN 18 (7-18) mg/dl Creatinine 2.30 H (0.6-1.2) mg/dl Est Cr Clr Drug Dosing 18.8 ml/min Est GFR ( Amer) 24.1 Est GFR (Non-Af Amer) 20.8 BUN/Creatinine Ratio 7.7 L (10-20) Glucose 95 (70-99) mg/dl Calcium 9.8 (8.5-10.1) mg/dl Magnesium 2.1 (1.8-2.4) mg/dl Total Bilirubin 0.5 (0.2-1) mg/dl AST 15 (15-37) U/L ALT 16 (12-78) U/L Alkaline Phosphatase 224 H (45-117) U/L Total Protein 7.4 (6.4-8.2) gm/dl Albumin 3.4 (3.4-5.0) gm/dl Globulin 4.0 (2.5-4.0) gm/dl Albumin/Globulin Ratio 0.9 (0.9-2) Lipase 56 L (73-393) U/L Urine Color Urine Appearance (Clear) Urine pH (4.5-7.5) Ur Specific [place] (1.000-1.030) Urine Protein (Negative) Urine Glucose (UA) (Negative) Urine Ketones (Negative) Urine Blood (Negative) Urine Nitrite (Negative) Urine Bilirubin (Negative) Urine Urobilinogen (Negative) Ur Leukocyte Esterase (Negative) Urine WBC (Auto) (0-5) /hpf Urine RBC (Auto) (0-4) /hpf U Hyaline Cast (Auto) (0-5) /lpf U Epithel Cells (Auto) (0-5) /lpf Urine Bacteria (Auto) (Negative) 03/11/19 Range/Units 12:40 WBC (4.8-10.8) K/uL RBC (4.2-5.4) M/uL Hgb (12.0-16.0) g/dL Hct (37-47) % MCV (80-100) fL MCH (25-34) pg MCHC (32-36) g/dL RDW Std Deviation (36.4-46.3) fL RDW Coeff of Monisha (11.5-14.5) % Plt Count (130-400) K/uL MPV (7.4-10.4) fL Immature Gran % (Auto) % Neut % (Auto) % Lymph % (Auto) % [place] % (Auto) % Eos % (Auto) % Baso % (Auto) % Immature Gran # (Auto) (0.00-0.02) K/uL Neut # (Auto) (1.4-6.5) K/uL Lymph # (Auto) (1.2-3.4) K/uL [place] # (Auto) (0.11-0.59) K/uL Eos # (Auto) (0-0.5) K/uL Baso # (Auto) (0-0.2) K/uL PT (9.0-12.0) Seconds INR (0.9-1.1) APTT (21.0-31.0) Seconds PTT Ratio Sodium (136-145) mmol/L Potassium (3.5-5.1) mmol/L Chloride (98-107) mmol/L Carbon Dioxide (21-32) mmol/L Anion Gap (3-11) BUN (7-18) mg/dl Creatinine (0.6-1.2) mg/dl Est Cr Clr Drug Dosing ml/min Est GFR ( Amer) Est GFR (Non-Af Amer) BUN/Creatinine Ratio (10-20) Glucose (70-99) mg/dl Calcium (8.5-10.1) mg/dl Magnesium (1.8-2.4) mg/dl Total Bilirubin (0.2-1) mg/dl AST (15-37) U/L ALT (12-78) U/L Alkaline Phosphatase (45-117) U/L Total Protein (6.4-8.2) gm/dl Albumin (3.4-5.0) gm/dl Globulin (2.5-4.0) gm/dl Albumin/Globulin Ratio (0.9-2) Lipase (73-393) U/L Urine Color Yellow Urine Appearance Cloudy A (Clear) Urine pH 8.0 H (4.5-7.5) Ur Specific [place] 1.008 (1.000-1.030) Urine Protein Negative (Negative) Urine Glucose (UA) Negative (Negative) Urine Ketones Negative (Negative) Urine Blood Trace H (Negative) Urine Nitrite Negative (Negative) Urine Bilirubin Negative (Negative) Urine Urobilinogen Negative (Negative) Ur Leukocyte Esterase 3+ H (Negative) Urine WBC (Auto) >30 H (0-5) /hpf Urine RBC (Auto) 0-4 (0-4) /hpf U Hyaline Cast (Auto) 1-5 (0-5) /lpf U Epithel Cells (Auto) 5-10 H (0-5) /lpf Urine Bacteria (Auto) Negative (Negative) Imaging Data Radiologist's Impression: CT OF THE ABDOMEN AND PELVIS WITHOUT CONTRAST CLINICAL HISTORY: Lower abdominal pain. COMPARISON STUDY: CT of the abdomen and pelvis September 13, 2015. TECHNIQUE: Axial images of the abdomen and pelvis were obtained without IV contrast. Images were reviewed in the axial, sagittal, and coronal planes. Automated exposure control was utilized for the study. A dose lowering te [place] was utilized adhering to the principles of ALARA. FINDINGS: No pneumatosis, free air or portal venous gas is present. Pneumobilia is again noted. This was shown on CT of September 13, 2015. Gallbladder is surgically absent. Both kidneys are markedly atrophic. A peritoneal dialysis catheter is in place. A moderate amount stool within the colon is noted. Small bowel is fluid-filled and mildly dilated. Transition point is not identified. There is evidence for pelvic floor relaxation. There is mild perirectal infiltration and possible mild rectal wall thickening. There is no abscess. 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 A T12 kyphoplasty is noted. IMPRESSION: 1. Evidence for pelvic floor relaxation with mild perirectal infiltration and suspected mild rectal wall thickening which suggests a nonspecific proctitis. 2. Fluid-filled mildly dilated small bowel without transition point. The findings may reflect an enteritis. A small bowel obstruction could appear johnathan lar although is considered less likely. Electronically signed by: Blaine Wall M.D. 03/11/2019 12:04 PM [facility] Narrative Patient was seen and evaluated as above in room B 11. Review was performed of nursing notes and vital signs. After obtaining a thorough history and physical examination the above work up was performed. She presents to us today with complaints of intermittent rectal prolapse, abdominal pain, decreased p.o. and fluid intake as well as decreased stool output. On examination she is nontoxic in appearance but does have abdominal pain. Rectal exam does not reveal any prolapse at this time. There are no external hemorrhoids. Decision was made to obtain IV access as well as labs and a CT scan of the abdomen and pelvis without contrast secondary to her presentation here today. The CT reveals potential nonspecific proctitis which I believe is secondary to her prolapsed rectum that occurs intermittently. I will note though that I have not seen the rectal prolapse here. There is also mild fluid-filled dilated small bowel possibly indicating enteritis versus less likely bowel obstruction. Unfortunately, the patient presentation is less likely to be enteritis and perhaps could be an obstruction. She was eventually wanting pain medication and this was ordered. I discussed the case with the on-call surgical team and spoke with, Sathish Schmitt PA-C. We discussed the case. At this time it was noted that we do not have a colorectal surgeon, however her prolapse is felt to be more of an elective outpatient procedure. With the possible small bowel obstruction, UTI noted on labs here today and her pain I do believe that evaluation here is warranted and subsequent he spoke with the hospitalist. It was recommended by that team to consult the surgeon that the patient is scheduled to see on Friday. I spoke with Dr. Pineda who is a colorectal surgeon at [facility]. We discussed whether or not the patient should be transferred to their facility and it was identified by the surgeon that this is typically an outpatient elective procedure, and that transfer to their facility at this time was not indicated. I then relayed this to the hospitalist team who will admit the patient for further evaluation and management. I did give her 1 g of Rocephin here with the UTI likely on labs and she did well and did not have a reaction. CBC reveals no leukocytosis or concerning. Her INR is elevated at 6.8. Creatinine at 2.30 but she is on peritoneal dialysis. Urinalysis reveals UTI. Please refer to further documentation regarding her stay. She will be admitted for further evaluation and management. Case was discussed with the attending physician. Medication list reviewed. Patient presentation vitals reveal hypertension which I believe secondary to presentation. In the evaluation and treatment of this patient the following differential diagnoses were entertained: Obstruction, prolapsed rectum, diverticulitis, among others. Impression & Plan Rectal prolapse, Abdominal pain, Acute UTI Discharge Plan Visit Data *Final* Discharge Date/Time: 03/11/19 16:40 Chief Complaint: Rectal Pain Stated Complaint: COMPLETE RECTAL PROLAPSE ED Provider: Arley Mcknight ED Midlevel Provider: Lane Redmond Discharge Problem: Rectal prolapse, Abdominal pain, Acute UTI Patient Disposition: Admitted As Inpatient Condition: Good Discharge Instructions Interventions: ED Discharge Assessment Last Done: 03/11/19 16:40
[2019-03-11 11:44] LABS: Albumin Level 3.4 gm/dl (3.4-5.0); BUN Creatinine Ratio 7.7 (10-20); Calcium 9.8 mg/dl (8.5-10.1); Creatinine Clr Calc Pharmacy 18.8 ml/min; Est GFR (African American) 24.1; Est GFR (Non-African American) 20.8; Magnesium 2.1 mg/dl (1.8-2.4); Potassium 3.8 mmol/L (3.5-5.1)
[2019-03-11 11:47] LABS: Albumin Globulin Ratio 0.9 (0.9-2); Bilirubin,Total 0.5 mg/dl (0.2-1); Total Protein 7.4 gm/dl (6.4-8.2)
--- NOTE | 2019-03-11 12:05 | CT Scan Report ---
CT OF THE ABDOMEN AND PELVIS WITHOUT CONTRAST CLINICAL HISTORY: Lower abdominal pain. COMPARISON STUDY: CT of the abdomen and pelvis September 13, 2015. TECHNIQUE: Axial images of the abdomen and pelvis were obtained without IV contrast. Images were revi ewed in the axial, sagittal, and coronal planes. Automated exposure control was utilized for the rickie dy. A dose lowering technique was utilized adhering to the principles of ALARA. FINDINGS: No pneumatosis, free air or portal venous gas is present. Pneumobilia is again noted. This was shown on CT of September 13, 2015. Gallbladder is surgically absent. Both kidneys are markedly atr ophic. A peritoneal dialysis catheter is in place. A moderate amount stool within the colon is noted. Small bowel is fluid-filled and mildly dilated. Transition point is not identified. There is evidenc e for pelvic floor relaxation. There is mild perirectal infiltration and possible mild rectal wall th ickening. There is no abscess. 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 A T12 kyphoplasty i s noted. IMPRESSION: 1. Evidence for pelvic floor relaxation with mild perirectal infiltration and suspected mild rectal w all thickening which suggests a nonspecific proctitis. 2. Fluid-filled mildly dilated small bowel without transition point. The findings may reflect an ente ritis. A small bowel obstruction could appear similar although is considered less likely. Electronically signed by: Blaine Wall M.D. 03/11/2019 12:04 PM
[2019-03-11 12:52] LABS: Appearance Urine Cloudy (Clear); Bacteria Urine Automated Negative (Negative); Bilirubin Urine Negative (Negative); Blood Urine Trace (Negative); Color Urine Yellow; Glucose Urine UA Negative (Negative); Ketones Urine Negative (Negative); Leukocyte Esterase Urine 3+ (Negative); Nitrite Urine Negative (Negative); Protein Urine Negative (Negative); RBC Urine Automated 0-4 /hpf (0-4); Specific Gravity Urine 1.008 (1.000-1.030); Urobilinogen Urine Negative (Negative); WBC Urine Automated >30 /hpf (0-5)
[2019-03-11 13:22] LABS: Partial Thromboplastin Ratio 2.4; Prothrombin Time 60.9 Seconds (9.0-12.0)
[2019-03-11 13:23] LABS: INR 6.8 (0.9-1.1); Partial Thromboplastin Time 64.4 Seconds (21.0-31.0)
[2019-03-11] MEDS ORDERED: cefTRIAXone SODIUM 1,000 MG/50 ML BAG IV STA (13:54)
--- NOTE | 2019-03-11 14:32 | Surgery Consultation ---
Date of Consultation March 11, 2019 Assessment & Plan (1) Rectal prolapse: No prolapse at present. She will need evaluation by [place] [facility] for this, she has an appt next week but doesn't think she can travel to [place]. In the meantime, would increase her bowel regimen and Dr. Wong has prescribed her Amitiza in the past. Her abdomen is benign, but I've ordered peritoneal culture from her PD cath. There does not appear to be a problem with catheter placement or small bowel obstruction. Her coagulopathy will need addressed, and dialysis coordinated. Would expect her prolapse to continue with her current PD regimen. History of Present Illness History of Present Illness 68 y/o female 6 weeks s/p PD cath placement with increasing rectal prolapse over the past three weeks since starting the PD. Prolapse is now reduced after holding PD this morning and she was referred to the ED. She was seen in [place] ER on Friday for constipation, was given lactulose in addition to her home Amitizia. Still not had a BM. Some general abdominal pain, not localized. No fevers or chills. Allergies Allergy/AdvReac Type Severity Reaction Status Date / Time famotidine Allergy Severe SHORTNESS Verified 03/11/19 12:02 OF BREATH Penicillins Allergy Severe SHORTNESS Verified 03/11/19 12:02 OF BREATH prednisone Allergy Severe rash Verified 03/11/19 12:02 deflazacort Allergy Intermediate HIVES TO Verified 03/11/19 12:02 ADVACORT Iodinated Contrast- Oral and Allergy Intermediate HIVES Verified 03/11/19 12:02 IV Dye pentazocine Allergy Intermediate HIVES Verified 03/11/19 12:02 Home Medications Home Medications Medication Instructions Recorded Confirmed Type Amitiza 24 mcg PO BID 07/03/18 03/11/19 History Spiriva with HandiHaler 1 cap INHALATION QAM 07/03/18 03/11/19 History Symbicort 2 puff INHALATION BID 07/03/18 03/11/19 History bupropion HCl [Wellbutrin SR] 150 mg PO QAM 07/03/18 03/11/19 History furosemide [Lasix] 80 mg PO BID 07/03/18 03/11/19 History lansoprazole 30 mg PO QAM 07/03/18 03/11/19 History levothyroxine 50 mcg PO QAM 07/03/18 03/11/19 History omega 4-ykh-wso-fish oil [Fish Oil] 1,000 mg PO BID 07/03/18 03/11/19 History ondansetron HCl [Zofran] 8 mg PO BID PRN 07/03/18 03/11/19 History oxycodone-acetaminophen 1 tab PO Q6H PRN 07/03/18 03/11/19 History warfarin [Coumadin] 5 mg PO 3XWK 07/03/18 03/11/19 History warfarin [Coumadin] 7.5 mg PO 4XWK 07/03/18 03/11/19 History Requip 1 mg PO 3XWK 01/28/19 03/11/19 History lactulose 30 g PO QID 03/11/19 03/11/19 History potassium 0 mg PO QAM 03/11/19 03/11/19 History Patient History Medical History Anxiety Atrial fibrillation TAKES COUMADIN. FOLLOWS WITH DR. HOBSON Chronic back pain Chronic kidney disease STAGE 4-5 KIDNEY DISEASE Chronic obstructive pulmonary disease Depression GERD (gastroesophageal reflux disease) [facility]od[facility] Hx of peptic ulcer Hypothyroidism Kidney transplant candidate Osteoarthritis Pulmonary embolism 3 YEARS AGO Stroke (~25 YEARS AGO) MILD MEMORY LOSS Surgical History Fusion of spine C3-5 FUSION. LIMITED WITH SIDE TO SIDE MOVEMENT. UP AND DOWN WITH NO PROBLEMS H/O foot surgery RIGHT FOOT History of cardiac cath ~3 YEARS AGO. NO STENTS. LEO WILSON History of carpal tunnel release BILATERAL History of cataract surgery BILATERAL History of cholecystectomy LAP History of colonoscopy History of esophagogastroduodenoscopy (EGD) History of hysterectomy OLIVER WITH BSO History of kyphoplasty T12 LEVEL (3 YEARS AGO) Hx of lumpectomy NEGATIVE - LEFT BREAST S/P arteriovenous (AV) fistula creation LEFT ARM S/P wrist surgery RIGHT Social History Preferred Language: Occitan Communication Ability: Effective Beliefs That Will Affect Care: None Current Living Situation: Alone Feels Safe at Home: Yes Smoking Status: Former smoker Tobacco Type: cigarettes Second Hand Exposure: No Hx Alcohol Use: No Hx Substance Use: No Review of Systems Constitutional: no fever and no chills Gastrointestinal: + abdominal pain, + constipation and + problem reported (some rectal drainage, bloody mucus); no nausea and no vomiting Physical Exam Constitutional: WD/WN, vitals as above no acute distress Respiratory: normal respiratory effort; no respiratory distress Cardiovascular: Rate/Rhythm: regular rate Gastrointestinal (Abdomen): Inspection/Auscultation: abdomen not distended Percussion/Palpation: + abdomen tender (minimal generalized) PD cath in nery ce, periumbilical incision well healed, No rectal prolapse currently Results & Data Vital Signs (Past 12 Hours) Vital Signs Temp Pulse Pulse Resp BP BP Pulse Ox 03/11/19 13:00 76 16 140/82 98 03/11/19 11:43 88 17 137/57 L 95 03/11/19 10:33 36.7 C 73 18 147/66 H 96 Diagnostic Findings [place], [place] [phone] CT Scan Report Patient: VIKRAM PALENCIA Date: 03/11/19 MR#: [id number]: [address] Acct ID:[id number]: Date: 1950[facility] Zip: [place] [address] Age: 68Location: ED Sex: F Room/Bed: Att Phy: Diagnosis: COMPLETE RECTAL PROLAPSE Sarah Phy: Tiago Vinson, MDService Date: 03/11/19 Fam Phy: Interpreting Phy: Blaine Wall MD Admit Phy: Ordering Phy: Lane Redmond PA-C cc: ~ CT OF THE ABDOMEN AND PELVIS WITHOUT CONTRAST CLINICAL HISTORY: Lower abdominal pain. COMPARISON STUDY: CT of the abdomen and pelvis September 13, 2015. TECHNIQUE: Axial images of the abdomen and pelvis were obtained without IV contrast. Images were reviewed in the axial, sagittal, and coronal planes. Automated exposure control was utilized for the study. A dose lowering technique was utilized adhering to the principles of ALARA. FINDINGS: No pneumatosis, free air or portal venous gas is present. Pneumobilia is again noted. This was shown on CT of September 13, 2015. Gallbladder is surgically absent. Both kidneys are markedly atrophic. A peritoneal dialysis catheter is in place. A moderate amount stool within the colon is noted. Small bowel is fluid-filled and mildly dilated. Transition point is not identified. T here is evidence for pelvic floor relaxation. There is mild perirectal infiltration and possible mild rectal wall thickening. There is no abscess. 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 A T12 kyphoplasty is noted. IMPRESSION: 1. Evidence for pelvic floor relaxation with mild perirectal infiltration and suspected mild rectal wall thickening which suggests a nonspecific proctitis. 2. Fluid-filled mildly dilated small bowel without transition point. The findings may reflect an enteritis. A small bowel obstruction could appear similar although is considered less likely. Electronically signed by: Blaine Wall M.D. 03/11/2019 12:04 PM
[2019-03-11] MEDS ORDERED: HYDROmorphone INJ 0.5 MG/0.5 ML SYR IV STA (14:38)
[2019-03-11] MEDS ORDERED: HYDROmorphone INJ 0.5 MG/0.5 ML SYR IV ONE (15:48)
[2019-03-11] MEDS ORDERED: FOSFOMYCIN TROMETHAMINE 3 GM PACKET PO ONE (17:30)
--- NOTE | 2019-03-11 17:42 | Nephrology Consultation ---
Date of Consultation March 11, 2019 Assessment & Plan (1) ESRD needing dialysis: pt on care home dialysis >> ICHD x years then changed one month back to PD. has working avf; given constipation, would not court a peritonitis here. recommend resuming intermittent HD until bowel motility issues/ question of prolapse definitively addressed. peritonitis episode could complicate addressing prolapse/ constipation issues, also would take her temporarily off txplt list -plan HD tomorrow; no urgent need today >> chemistries, volume status, bp, anemia all acceptable currently -rectal prolapse not a typical PD complication; not sure it relates here but reasonable to take steps to avoid peritonitis, evaluate proctitis/worsening prolapse issue and then reevaluate dialysis modality Present on Admission?: Yes (2) Peritoneal dialysis catheter in place: needs weekly flush/dressing change Present on Admission?: Yes (3) Constipation: in setting of concerns about rectal prolapse, proctitis, and enteritis -defer to primary service > avoid fleets containing products in esrd -recommend lactulose, stool softeners, amitiza enemas w/ tap water or mineral oil if surgery/GI oks, Present on Admission?: Yes (4) Positive urine culture: pt has positive urine cx and ua w/ microscopy on 03/04; no voiding c/o apart from frequency that admission; ua here today c/w possible uti; await urine cx; getting empiric coverage in meantime Present on Admission?: Yes History of Present Illness Reason for Consultation: ESRD on dialysis, PD pt w/ abd pain Requesting Physician: Dr Khanna Attending Physician: Magdiel Garcia MD History of Present Illness 68 y/o F whom I'm asked to see for dialysis needs is admitted this evening after failing outpt therapy of multiple issues including recent + urine cx w/ voiding sx, severe constipation w/ no BM x 7 days, rectal prolapse, recent + urine cx w/ voiding sx. She started PD about one month ago after 3.5 years of in center HD. She has a functional AVF. Since starting PD her rectal prolapse has worsened, complicated now by constipation. Other pmh includes copd, a fib on coumadin, anxiety/depression, remote PE/stroke w/ mild residual memory loss. Cause of ESRD originally was what sounds like interstitial nephritis from nsaids, PPI. She was seen in [facility] ER for constipation last week : she had some urinary frequency but no dysuria/gross hematuria const sx then or in intervening week or now. She was given lactulose; already on amitizia and softeners. also received IV lasix and K to manage developing LE edema Allergies Allergy/AdvReac Type Severity Reaction Status Date / Time famotidine Allergy Severe SHORTNESS Verified 03/11/19 12:02 OF BREATH Penicillins Allergy Severe SHORTNESS Verified 03/11/19 12:02 OF BREATH prednisone Allergy Severe rash Verified 03/11/19 12:02 deflazacort Allergy Intermediate HIVES TO Verified 03/11/19 12:02 ADVACORT Iodinated Contrast- Oral and Allergy Intermediate HIVES Verified 03/11/19 12:02 IV Dye pentazocine Allergy Intermediate HIVES Verified 03/11/19 12:02 Home Medications Home Medications Medication Instructions Recorded Confirmed Type Amitiza 24 mcg PO BID 07/03/18 03/11/19 History Spiriva with HandiHaler 1 cap INHALATION QAM 07/03/18 03/11/19 History Symbicort 2 puff INHALATION BID 07/03/18 03/11/19 History furosemide [Lasix] 80 mg PO BID 07/03/18 03/11/19 History lansoprazole 30 mg PO QAM 07/03/18 03/11/19 History levothyroxine 50 mcg PO QAM 07/03/18 03/11/19 History omega 3-crx-udb-fish oil [Fish Oil] 1,000 mg PO BID 07/03/18 03/11/19 History ondansetron HCl [Zofran] 8 mg PO BID PRN 07/03/18 03/11/19 History warfarin [Coumadin] 5 mg PO MOWEFR 07/03/18 03/11/19 History warfarin [Coumadin] 7.5 mg PO SUTUTHSA 07/03/18 03/11/19 History bupropion HCl 300 mg PO DAILY 03/11/19 03/11/19 History diltiazem HCl 180 mg PO DAILY 03/11/19 03/11/19 History hydrocodone-acetaminophen 1 tab PO TID PRN 03/11/19 03/11/19 History lactulose 15 ml PO HS 03/11/19 03/11/19 History qmwmjmop-ebj-EQ-Ca carb-vit K 1 tab PO DAILY 03/11/19 03/11/19 History [Women's 50 Plus Multivitamin] potassium chloride 20 meq PO DAILY 03/11/19 03/11/19 History ropinirole 1.5 mg PO HS 03/11/19 03/11/19 History tizanidine 2 mg PO DAILY PRN 03/11/19 03/11/19 History Patient History Medical History Anxiety Atrial fibrillation TAKES COUMADIN. FOLLOWS WITH DR. HOBSON Chronic back pain Chronic kidney disease STAGE 4-5 KIDNEY DISEASE Chronic obstructive pulmonary disease Depression GERD (gastroesophageal reflux disease) Hemodialysis patient MWF. [facility] Hx of peptic ulcer Hypothyroidism Kidney transplant candidate Osteoarthritis Pulmonary embolism 3 YEARS AGO Stroke (~25 YEARS AGO) MILD MEMORY LOSS Surgical History Fusion of spine C3-5 FUSION. LIMITED WITH SIDE TO SIDE MOVEMENT. UP AND DOWN WITH NO PROBLEMS H/O foot surgery RIGHT FOOT History of cardiac cath ~3 YEARS AGO. NO STENTS. 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 Beliefs That Will Affect Care: None Current Living Situation: Alone Other Information That Helps Us Care for You: No Feels Safe at Home: Yes Safety Concerns: Feels Safe At This Time Smoking Status: Former smoker Tobacco Type: cigarettes Do You Dip or Chew Tobacco: No Smoking End Date: 2010 Second Hand Exposure: No Tobacco Cessation Education Requested by Patient: No Hx Alcohol Use: No Hx Substance Use: No Review of Systems Review of Systems: All systems reviewed & are unremarkable except as noted in HPI & below Cardiovascular: + edema (recent/ improved now); no chest pain Gastrointestinal: as per Subjective / HPI, + abdominal pain (fullness/ BL lower quadrants), + early satiety and + constipation; no vomiting and no pain with swallowing Genitourinary: + urinary frequency; no dysuria, no difficulty urinating, no urinary urgency, no urinary incontinence and no hematuria Musculoskeletal: + back pain (chronic) Physical Exam Constitutional: well developed and well nourished; no acute distress maneuvers readily for exam on ra Eyes: EOM intact bilaterally ENMT: Ears: no external ear abnormality Nose: no external nose abnormality Mouth: + dry oral mucous membranes Neck: no nuchal rigidity Respiratory: normal respiratory effort Auscultation: + diminished lung sounds and + crackles (a few lacy) Cardiovascular: RRR, no murmur, no edema Extremities: + AV fistula (+ t/b) Gastrointestinal (Abdomen): Inspection/Auscultation: normal bowel sounds Percussion/Palpation: abdomen soft; abdomen nontender Musculoskeletal: Extremities: strength 5/5 throughout Skin: no rashes, warm and dry Neurologic: stewart, fluent speech, no tremor Psychiatric: Orientation: alert and oriented x 3 Speech: normal rate/rhythm /volume of speech Affect: + anxious affect Insight: good insight Judgement: good judgement Results & Data Vital Signs (Past 12 Hours) Vital Signs Temp Pulse Pulse Resp BP BP Pulse Ox 03/11/19 15:58 92 H 18 134/83 97 03/11/19 13:55 96 03/11/19 13:00 76 16 140/82 98 03/11/19 11:43 88 17 137/57 L 95 03/11/19 10:33 36.7 C 73 18 147/66 H 96 Laboratory Results Abnormal lab results 03/11/19 03/11/19 03/11/19 Range/Units 11:13 11:13 11:13 MCHC 36.5 H (32-36) g/dL [place] # (Auto) 0.61 H (0.11-0.59) K/uL Eos # (Auto) 0.63 H (0-0.5) K/uL PT 60.9 H (9.0-12.0) Seconds INR 6.8 H* (0.9-1.1) APTT 64.4 H* (21.0-31.0) Seconds Sodium 135 L (136-145) mmol/L Creatinine 2.30 H (0.6-1.2) mg/dl BUN/Creatinine Ratio 7.7 L (10-20) Alkaline Phosphatase 224 H (45-117) U/L Lipase 56 L (73-393) U/L Urine Appearance (Clear) Urine pH (4.5-7.5) Urine Blood (Negative) Ur Leukocyte Esterase (Negative) Urine WBC (Auto) (0-5) /hpf U Epithel Cells (Auto) (0-5) /lpf 03/11/19 Range/Units 12:40 MCHC (32-36) g/dL [place] # (Auto) (0.11-0.59) K/uL Eos # (Auto) (0-0.5) K/uL PT (9.0-12.0) Seconds INR (0.9-1.1) APTT (21.0-31.0) Seconds Sodium (136-145) mmol/L Creatinine (0.6-1.2) mg/dl BUN/Creatinine Ratio (10-20) Alkaline Phosphatase (45-117) U/L Lipase (73-393) U/L Urine Appearance Cloudy A (Clear) Urine pH 8.0 H (4.5-7.5) Urine Blood Trace H (Negative) Ur Leukocyte Esterase 3+ H (Negative) Urine WBC (Auto) >30 H (0-5) /hpf U Epithel Cells (Auto) 5-10 H (0-5) /lpf Diagnostic Findings ct abd/pelvis non con CLINICAL HISTORY: Lower abdominal pain. COMPARISON STUDY: CT of the abdomen and pelvis September 13, 2015. TECHNIQUE: Axial images of the abdomen and pelvis were obtained without IV contrast. Images were reviewed in the axial, sagittal, and coronal planes. Automated exposure control was utilized for the study. A dose lowering technique was utilized adhering to the principles of ALARA. FINDINGS: No pneumatosis, free air or portal venous gas is present. Pneumobilia is again noted. This was shown on CT of September 13, 2015. Gallbladder is surgically absent. Both kidneys are markedly atrophic. A peritoneal dialysis catheter is in place. A moderate amount stool within the colon is noted. Small bowel is fluid-filled and mildly dilated. Transition point is not identified. There is evidence for pelvic floor relaxation. There is mild perirectal infiltration and possible mild rectal wall thickening. There is no abscess. 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 A T12 kyphoplasty is noted. IMPRESSION: 1. Evidence for pelvic floor relaxation with mild perirectal infiltration and suspected mild rectal wall thickening which suggests a nonspecific proctitis. 2. Fluid-filled mildly dilated small bowel without transition point. The findings may reflect an enteritis. A small bowel obstruction could appear similar although is considered less likel
--- NOTE | 2019-03-11 19:57 | History & Physical Report ---
Date of Service March 11, 2019 Assessment & Plan (1) Abdominal pain: -Admit to [facility] -Patient presenting from home with reports of increasing abdominal pain and worsening rectal prolapse of the past 2 weeks -In the ED, CT ABD/pelvis showing a nonspecific proctitis and enteritis; SBO mentioned however considered to be less likely -Suspect that proctitis and enteritis are likely secondary to constipation -Recently seen at [place] [facility] and started on lactulose -Increase lactulose dose and start stool softener, continue home dose of Amitzia -Given that patient is on peritoneal dialysis, peritonitis considered however considered unlikely given no leukocytosis or fever - will check PD fluid culture however hold on antibiotics for now -General surgery consulted by ED, input appreciated (2) Enterococcus UTI: -Outpatient culture from 03/04 growing enterococcus -Patient prescribed fosfomycin however has not picked up from the pharmacy yet -No signs of sepsis, will give patient 1 dose fosfomycin 3 g (3) ESRD needing dialysis: (4) Peritoneal dialysis catheter in place: -Recently started on PD, still has HD fistula in place -Continue home dose of Lasix -Appreciate nephrology input (5) Rectal prolapse: -ED discussed case with Dr. Ring (colorectal surgery at [place]) -no need for transfer at this time, patient is encouraged to keep follow-up appointment on 03/15 -Patient reports she may have trouble making that appointment given the distance, likely would be unable to travel to [place] as well -May need to look into patient seeing colorectal surgery at outreach at [facility] (6) Atrial fibrillation: -Rate controlled on diltiazem, continue -anticoagulated on Coumadin, INR 6.8; no signs of bleeding, hold Coumadin for now (7) COPD (chronic obstructive pulmonary disease): -Stable, no signs of acute exacerbation -Continue home inhalers (8) Depression: -Continue bupropion (9) Hypothyroidism: -Continue levothyroxine (10) DVT prophylaxis: -On Coumadin with supratherapeutic INR History of Present Illness Chief Complaint: Abdominal pain, rectal prolapse Primary Care Provider: Tiago Vinson MD 68-year-old female who presents to the ED with abdominal pain and rectal prolapse. Patient has ESRD, currently on peritoneal dialysis (recently switched from hemodialysis about 3 weeks ago). Patient reports that about 1 week after starting peritoneal dialysis, she developed lower abdominal pain which is been progressively getting worse. She also reports a history of rectal prolapse however it is not giving her problems for the past several years. Shortly after starting peritoneal dialysis, she reports her rectal prolapse returned and has been worsening over the past 2 weeks as well. She reports chronic constipation no bowel movement for the past 1 week. She was recently seen at [place] [facility] and was started on lactulose. She has had a poor appetite however denies nausea and vomiting. Also last week, patient was diagnosed with an enterococcus UTI. Due to penicillin allergy and renal impairment, patient was prescribed 1 dose of fosfomycin however she has not picked this up from the pharmacy yet. Patient reports ongoing urinary frequency and dysuria. She denies fevers and chills. She reports she has not had any trouble draining her peritoneal dialysis catheter and fluid has clear. Her last exchange was last evening. She denies chest pain shortness of breath. No lightheadedness, dizziness, diaphoresis, syncopal events. In the ED, CT ABD/pelvis is showing nonspecific proctitis and enteritis. SBO was also mentioned however is considered unlikely. Patient has remained hemodynamically stable, labs at baseline/unremarkable. UA suggest possible UTI. She was given IV Dilaudid and IV ceftriaxone. Allergies Allergy/AdvReac Type Severity Reaction Status Date / Time famotidine Allergy Severe SHORTNESS Verified 03/11/19 12:02 OF BREATH Penicillins Allergy Severe SHORTNESS Verified 03/11/19 12:02 OF BREATH prednisone Allergy Severe rash Verified 03/11/19 12:02 deflazacort Allergy Intermediate HIVES TO Verified 03/11/19 12:02 ADVACORT Iodinated Contrast- Oral and Allergy Intermediate HIVES Verified 03/11/19 12:02 IV Dye pentazocine Allergy Intermediate HIVES Verified 03/11/19 12:02 Home Medications Home Medications Medication Instructions Recorded Confirmed Type Amitiza 24 mcg PO BID 07/03/18 03/11/19 History Spiriva with HandiHaler 1 cap INHALATION QAM 07/03/18 03/11/19 History Symbicort 2 puff INHALATION BID 07/03/18 03/11/19 History furosemide [Lasix] 80 mg PO BID 07/03/18 03/11/19 History lansoprazole 30 mg PO QAM 07/03/18 03/11/19 History levothyroxine 50 mcg PO QAM 07/03/18 03/11/19 History omega 7-bde-tkg-fish oil [Fish Oil] 1,000 mg PO BID 07/03/18 03/11/19 History ondansetron HCl [Zofran] 8 mg PO BID PRN 07/03/18 03/11/19 History warfarin [Coumadin] 5 mg PO MOWEFR 07/03/18 03/11/19 History warfarin [Coumadin] 7.5 mg PO SUTUTHSA 07/03/18 03/11/19 History bupropion HCl 300 mg PO DAILY 03/11/19 03/11/19 History diltiazem HCl 180 mg PO DAILY 03/11/19 03/11/19 History hydrocodone-acetaminophen 1 tab PO TID PRN 03/11/19 03/11/19 History lactulose 15 ml PO HS 03/11/19 03/11/19 History vqjqwwox-axs-SH-Ca carb-vit K 1 tab PO DAILY 03/11/19 03/11/19 History [Women's 50 Plus Multivitamin] potassium chloride 20 meq PO DAILY 03/11/19 03/11/19 History ropinirole 1.5 mg PO HS 03/11/19 03/11/19 History tizanidine 2 mg PO DAILY PRN 03/11/19 03/11/19 History Past Med/Surg History Medical History Constipation (Chronic) Peritoneal dialysis catheter in place (Chronic) ESRD needing dialysis (Chronic) Atrial fibrillation (Chronic) HTN (hypertension) (Chronic) COPD (chronic obstructive pulmonary disease) (Chronic) GERD (gastroesophageal reflux disease) (Chronic) Hypothyroidism (Chronic) Depression (Chronic) Surgical History History of appendectomy (Chronic) S/P cholecystectomy (Chronic) S/P OLIVER-BSO (Chronic) S/P cataract surgery (Chronic) H/O foot surgery (Chronic) H/O neck surgery (Chronic) History of carpal tunnel surgery (Chronic) Family History Mother Hypertension Father Stroke Social History Preferred Language: Portuguese Communication Ability: Effective Professor Of Voice Required: No Beliefs That Will Affect Care: None Current Living Situation: Alone Other Information That Helps Us Care for You: No Feels Safe at Home: Yes Safety Concerns: Feels Safe At This Time Smoking Status: Former smoker Tobacco Type: cigarettes Do You Dip or Chew Tobacco: No Smoking End Date: 2010 Second Hand Exposure: No Tobacco Cessation Education Requested by Patient: No Hx Alcohol Use: No Hx Substance Use: No Review of Systems Review of Systems: ROS per HPI, all other systems reviewed and negative Physical Exam Constitutional: WD/WN, vitals as above Eyes: PERRL, conjunctivae normal, anicteric sclerae ENMT: external ear and nose normal, oropharynx normal Respiratory: normal respiratory effort, lungs clear to auscultation Cardiovascular: Rate/Rhythm: regular rate and regular rhythm Vessels: normal peripheral pulses Extremities: + edema (+1 edema BLE) Gastrointestinal (Abdomen): Inspection/Auscultation: normal bowel sounds; abdomen not distended Percussion/Palpation: + abdomen tender (Mid to lower abdomen) and abdomen soft; no hepatosplenomegaly PD catheter in place to right abdomen, no surrounding erythema or drainage noted Musculoskeletal: no cyanosis or clubbing, extremities motor strength 5/5 Skin: no rashes, warm and dry Neurologic: PERRL, EOMI, accommodation nl, no face palsy, no dysarthria Psychiatric: A+Ox3, euthymic affect Results & Data Vital Signs (Past 12 Hours) Vital Signs Temp Pulse Pulse Resp BP BP Pulse Ox 03/11/19 17:40 77 20 120/56 L 96 03/11/19 15:58 92 H 18 134/83 97 03/11/19 13:55 96 03/11/19 13:00 76 16 140/82 98 03/11/19 11:43 88 17 137/57 L 95 03/11/19 10:33 36.7 C 73 18 147/66 H 96 Laboratory Results Short CBC 03/11/19 Range/Units 11:13 WBC 10.72 (4.8-10.8) K/uL Hgb 14.8 (12.0-16.0) g/dL Hct 40.6 (37-47) % Plt Count 337 (130-400) K/uL BMP 03/11/19 11:13 Sodium 135 L Potassium 3.8 Chloride 99 Carbon Dioxide 28 BUN 18 Creatinine 2.30 H Glucose 95 Calcium 9.8 Liver Function 03/11/19 Range/Units 11:13 Total Bilirubin 0.5 (0.2-1) mg/dl AST 15 (15-37) U/L ALT 16 (12-78) U/L Alkaline Phosphatase 224 H (45-117) U/L Albumin 3.4 (3.4-5.0) gm/dl Urine 03/11/19 Range/Units 12:40 Urine Color Yellow Urine Appearance Cloudy A (Clear) Urine pH 8.0 H (4.5-7.5) Ur Specific Mayer 1.008 (1.000-1.030) Urine Protein Negative (Negative) Urine Glucose (UA) Negative (Negative) Diagnostic Findings CT ABD/PELVIS IMPRESSION: 1. Evidence for pelvic floor relaxation with mild perirectal infiltration and suspected mild rectal wall thickening which suggests a nonspecific proctitis. 2. Fluid-filled mildly dilated small bowel without transition point. The fi ndings may reflect an enteritis. A small bowel obstruction could appear similar although is considered less likely. Code Status & VTE Plan Code Status Patient is a full code as per my discussion with her. VTE Prophylaxis Plan VTE Prophylaxis will be ordered: Yes Supervising Physician Co-Signing Physician Notes Patient is a 76-year-old female with history of ESRD on peritoneal dialysis, COPD, depression, hypothyroidism, constipation and other problems presents with history of lower abdominal pain which has been progressively worsening. She states having history of rectal prolapse which seems to be causing difficulty with bowel movement. Last BM is 1 week ago. Rectal prolapse is reducible and currently has no rectal prolapse. CT abdomen is history of nonspecific proctitis, enteritis. Patient is on chronic pain medicines. Please review HPI for complete details of presentation. On exam patient is moderately built and nourished, no apparent distress, normocephalic atraumatic, lungs are clear to auscultation, irregularly irregular rhythm,+ murmur, abdomen soft, mild abdominal tenderness in the lower abdomen, +PD catheter, bowel sounds are present, grossly no focal neurological deficits, trace pedal edema. Patient is admitted for management of worsening abdominal pain likely secondary to constipation in setting of rectal prolapse. Agree with bowel regimen for constipation. Minimize pain medications as able. Appreciate surgery input. Consider antibiotics if clinically deteriorates. Dialysis as per nephrology. Patient needs colorectal surgery evaluation eventually. Hold Coumadin secondary to supratherapeutic INR I personally reviewed the record. Patient is interviewed and examined at bedside. Patient's care is coordinated with Vika Cohn NP. Please refer to the documentation above for details of patient's presentation and for discussion of other issues.
[2019-03-11] MEDS: LACTULOSE SYRUP 10 GM/15 ML BTL 473 ML PO SCH (20:12)
[2019-03-11] MEDS: LUBIPROSTONE 8 MCG CAP PO SCH (20:12)
[2019-03-11] MEDS: DOCUSATE SODIUM 100 MG CAP PO SCH (20:13)
[2019-03-11] MEDS: FUROSEMIDE 80 MG TAB PO SCH (20:13)
[2019-03-11] MEDS: ROPINIROLE HCL 1 MG TABLET PO SCH (20:13)
[2019-03-11] MEDS: OMEGA-3 (PURIFIED FISH OIL) 1 GM CAP PO SCH (20:14)
[2019-03-11] MEDS: BUDESONIDE/FORMOTEROL FUMARATE 160/4.5 60 PUFFS/INHALER INH SCH (20:16)
[2019-03-11 23:08] LABS: Appearance Peritoneal Fluid CLEAR; Color Peritoneal Fluid COLORLESS; Mononuclear WBC Peritoneal 69.2 %; Polynuclear WBC Peritoneal 30.8 %; RBC Peritoneal Fluid (A) < 3000 /uL; WBC Peritoneal Fluid (A) 39 /ul (0-300)
[2019-03-11 23:28] LABS: Hepatitis B Surface Antibody Immune
[2019-03-11 23:39] LABS: Hepatitis B Surface Antigen Neg (Neg)
--- NOTE | 2019-03-12 00:50 | Emergency Department Note ---
ED Visit Note I reviewed the patient's past medical history, medications, and visit nursing notes. I discussed the case with the physician marketing assistant, examined the patient, and agree with the findings and plan as documented in PAC Ruy's note. .
[2019-03-12] MEDS: TRAMADOL HCL 50 MG TABLET PO PRN (01:17)
[2019-03-12] MEDS: LEVOTHYROXINE SODIUM 50 MCG TABLET PO SCH (05:37)
[2019-03-12] MEDS ORDERED: POLYETHYLENE (MIRALAX) 17 GM PACK PO PRN (06:06)
[2019-03-12] MEDS ORDERED: HYDROmorphone INJ 0.5 MG/0.5 ML SYR IV STA (06:17)
[2019-03-12] MEDS ORDERED: SODIUM CHLORIDE 0.9% 1000ML 1,000 ML IV PRN (07:45)
[2019-03-12 07:53] LABS: Hematocrit (blood only) 36.8 % (37-47); Hemoglobin 12.7 g/dL (12.0-16.0); Mean Corpuscular Hgb Conc 34.5 g/dL (32-36); Mean Corpuscular Volume 92.5 fL (80-100); Mean Platelet Volume 9.8 fL (7.4-10.4); Platelet Count 243 K/uL (130-400); RDW Coefficient of Variation 12.5 % (11.5-14.5); RDW Standard Deviation 42.8 fL (36.4-46.3); Red Blood Count 3.98 M/uL (4.2-5.4); White Blood Count 8.57 K/uL (4.8-10.8)
[2019-03-12] MEDS ORDERED: HEPARIN SOD (PORCINE) 1000 UNIT/ML 10 ML VIAL IV SCH (08:00)
[2019-03-12 08:13] LABS: Prothrombin Time 58.4 Seconds (9.0-12.0)
[2019-03-12 08:26] LABS: BUN Creatinine Ratio 8.7 (10-20); Calcium 8.4 mg/dl (8.5-10.1); Creatinine Clr Calc Pharmacy 20.5 ml/min; Est GFR (African American) 26.8; Est GFR (Non-African American) 23.1; Potassium 3.9 mmol/L (3.5-5.1)
[2019-03-12 08:27] LABS: INR 6.5 (0.9-1.1)
[2019-03-12] MEDS ORDERED: PHYTONADIONE 2.5 MG in SODIUM CHLORIDE 0.9% 50 ML IV ONE (09:00)
[2019-03-12] MEDS ORDERED: cefTRIAXone SODIUM 2,000 MG in DEXTROSE 5% 50 ML IV SCH (09:00)
--- NOTE | 2019-03-12 09:10 | Surgery Progress Note ---
Date of Service March 12, 2019 Assessment & Plan (1) Abdominal pain: no surgical indications at this point prolapse currently reduced no bm since over a week- I suspect this is the primary source of her discomfort. will monitor. may need to escalate bowel regiment if no effect recommend trying to keep her appointment with colorectal regarding the prolapse. Dr. Macedo covering for weekend. (2) Rectal prolapse: (3) Constipation: Subjective pt feeling "about the same". flavio diet. still with some lower abdominal "cramping" . no BM yet. no n/v Physical Exam Physical Exam: alert/oriented. nad abd: soft. mild lower abdominal ttp. no g/r/r Results & Data Vital Signs (Past 12 Hours) Vital Signs Temp Pulse Resp BP Pulse Ox 03/12/19 07:20 36.7 C 80 19 121/55 L 93 03/11/19 23:00 36.7 C 46 L 20 122/55 L 91 03/11/19 22:15 37.1 C 76 18
--- NOTE | 2019-03-12 11:45 | Nephrology Progress Note ---
Date of Service March 12, 2019 Assessment & Plan (1) ESRD needing dialysis: [facility] >> ICHD x years then changed one month back to PD. has working avf; given constipation, would not court a peritonitis here. recommend resuming intermittent HD until bowel motility issues/ question of prolapse definitively addressed. peritonitis episode could complicate addressing prolapse/ constipation issues, also would take her temporarily off txplt list -plan HD today >> chemistries, volume status, bp, anemia all acceptable currently; she does 3 hr txs in center in past and will do again today -rectal prolapse not a typical PD complication; not sure it relates here but reasonable to take steps to avoid peritonitis, evaluate proctitis/worsening prolapse issue and then reevaluate dialysis modality (2) Peritoneal dialysis catheter in place: needs weekly flush/dressing change - to be done by dialysis nurse (3) Constipation: in setting of concerns about rectal prolapse, proctitis, and enteritis -defer to primary service > avoid fleets containing products in esrd -recommend lactulose, stool softeners, amitiza; miralax ok w/ careful lab monitoring (4) Positive urine culture: pt has positive urine cx and ua w/o microscopy on 03/04; no voiding c/o apart from frequency that ER admission - UA not consistent here w/ uti; Subjective seen this am at 0800; no bm; no obvious bleeding. working on finishing breakfast; no sob, no edema or chest pain. Review of Systems Review of Systems: All systems reviewed & are unremarkable except as noted in HPI & below Physical Exam Constitutional: well developed and well nourished; no acute distress on ra Eyes: EOM intact bilaterally ENMT: Ears: no external ear abnormality Nose: no external nose abnormality Mouth: + dry oral mucous membranes Neck: no nuchal rigidity Respiratory: normal respiratory effort Auscultation: + diminished lung sounds Cardiovascular: RRR, no murmur, no edema Extremities: + AV fistula (+ t/b) Gastrointestinal (Abdomen): Inspection/Auscultation: normal bowel sounds Percussion/Palpation: abdomen soft; abdomen nontender Musculoskeletal: Extremities: strength 5/5 throughout Skin: no rashes, warm and dry Neurologic: stewart fluent speech Psychiatric: Orientation: alert and oriented x 3 Speech: normal rate/rhythm/volume of speech Affect: + anxious affect Insight: good insight Judgement: good judgement Results & Data Vital Signs (Past 12 Hours) Vital Signs Temp Pulse Pulse Resp BP BP Pulse Ox 03/12/19 10:40 84 133/49 L 03/12/19 10:20 88 125/51 L 03/12/19 10:00 89 130/58 L 03/12/19 09:40 86 125/56 L 03/12/19 09:10 36.7 C 77 03/12/19 07:20 36.7 C 80 19 121/55 L 93 Laboratory Results Abnormal lab results 03/12/19 03/12/19 03/12/19 Range/Units 07:07 07:07 07:07 RBC 3.98 L (4.2-5.4) M/uL Hct 36.8 L (37-47) % PT 58.4 H (9.0-12.0) Seconds INR 6.5 H* (0.9-1.1) Creatinine 2.11 H (0.6-1.2) mg/dl BUN/Creatinine Ratio 8.7 L (10-20) Calcium 8.4 L (8.5-10.1) mg/dl
--- NOTE | 2019-03-12 13:30 | Hospitalist Progress Note ---
Date of Service March 12, 2019 Assessment & Plan (1) Abdominal pain: Abdominal pain Constipation -abdominal discomfort primarily due to constipation: continue lactulose, continue home dose of Amitzia, give BID Miralax -CT abdomen: Fluid-filled mildly dilated small bowel without transition point. The findings may reflect an enteritis. A small bowel obstruction could appear similar although is considered less likely -there is no acute surgical interventions at this time, as general surgery recommends medical management for bowel motility -discussed with Dr. Rapp from Nephrology that with negative peritoneal cultures she does not suspect peritonitis. however, while in the hospital [facility], nephrology initiated hemodialysis in place of usual peritoneal dialysis -hemodialysis session completed on 03/12/19 -will try to minimize narcotics for pain control (2) Enterococcus UTI: -Outpatient culture from 03/04/19 growing enterococcus -patient prescribed fosfomycin as outpatient but did not excelsior picker. as per admitting team on 03/11/19; patient given 3 g as a single dose which is guideline for acute uncomplicated cystitis -in patient urine culture on 03/11/19 with Gram positive cocci [place] Count >100,000 CFU/ml with low counts of mixed german, Sensitivities to Follow -will await urine culture results before deciding further antibiotics (3) ESRD needing dialysis: -while in the hospital setting, nephrology initiated hemodialysis in place of usual peritoneal dialysis -hemodialysis session completed on 03/12/19 -Continue home dose of Lasix (4) Peritoneal dialysis catheter in place: -Recently started on Peritoneal Dialysis and also hemodialysis fistula in place (5) Rectal prolapse: -ED discussed case with Dr. Ring (colorectal surgery at [place]) -no need for transfer at this time, patient is encouraged to keep follow-up appointment on 03/15/19 -however patient reports that she will re-schedule that appointment or seek alternative option because of distance and transportation reasons -a Saturday April 06, 2019 at 9:[address] [facility] appointment with colorectal surgeon Dr. Vinny Tubbs as been scheduled as a closer alternative for the patient (6) Atrial fibrillation: -Rate controlled on diltiazem, continue -supratherapeutic INR from coumadin use and low appetite -admission INR 6.8 on 03/11/19, coumadin held and INR remained elevated as 6.5 on 03/12/19, vitamin K 2.5 mg IV given on 03/12/19 -will trend INR (7) COPD (chronic obstructive pulmonary disease): -Stable, no signs of acute exacerbation -Continue home inhalers (8) Depression: -Continue bupropion (9) Hypothyroidism: -Continue levothyroxine (10) DVT prophylaxis: -supratherapeutic INR from coumadin use and low appetite -admission INR 6.8 on 03/11/19, coumadin held and INR remained elevated as 6.5 on 03/12/19, vitamin K 2.5 mg IV given on 03/12/19 -will trend INR Subjective Patient seen and examined after hemodialysis session. She denies bowel movement yet. no bowel movement in 1 week. abdominal discomfort present but not in acute distress. bowel sounds present. patient has peritoneal dialysis catheter. patient denies chest pain. no shortness of breath. no lightheadedness. no dizziness Physical Exam Constitutional: WD/WN, vitals as above Eyes: PERRL, conjunctivae normal, anicteric sclerae EOM intact bilaterally ENMT: external ear and nose normal, oropharynx normal Neck: trachea midline, no thyromegaly normal visual inspection Respiratory: normal respiratory effort, lungs clear to auscultation Cardiovascular: Rate/Rhythm: regular rate and regular rhythm Heart Sounds: + murmur Gastrointestinal (Abdomen): abdominal discomfort present but not in acute distress. bowel sounds present. patient has peritoneal dialysis catheter Neurologic: PERRL, EOMI, accommodation nl, no face palsy, no dysarthria CN's II-XI intact bilaterally Psychiatric: A+Ox3, euthymic affect Results & Data Vital Signs (Past 12 Hours) Vital Signs Temp Pulse Pulse Resp BP BP Pulse Ox 03/12/19 12:26 36.6 C 98 H 136/51 L 03/12/19 12:20 88 110/50 L 03/12/19 12:00 92 H 112/47 L 03/12/19 11:47 82 126/61 03/12/19 11:20 87 129/58 L 03/12/19 11:00 88 116/55 L 03/12/19 10:40 84 133/49 L 03/12/19 10:20 88 125/51 L 03/12/19 10:00 89 130/58 L 03/12/19 09:40 86 125/56 L 06/14/19 09:10 36.7 C 77 06/14/19 07:20 36.7 C 80 19 121/55 L 93
[2019-03-12] MEDS: POLYETHYLENE (MIRALAX) 17 GM PACK PO SCH ×2 (13:41→20:48)
[2019-03-12] MEDS: POTASSIUM CHLORIDE 20 MEQ TABCR PO SCH (13:41)
[2019-03-12] MEDS: dilTIAZem HCL 180 MG CAPCR PO SCH (13:42)
[2019-03-12] MEDS: DOCUSATE SODIUM 100 MG CAP PO SCH ×2 (13:43→20:48)
[2019-03-12] MEDS: OMEGA-3 (PURIFIED FISH OIL) 1 GM CAP PO SCH ×2 (13:43→20:48)
[2019-03-12] MEDS: LUBIPROSTONE 8 MCG CAP PO SCH ×2 (13:43→20:47)
[2019-03-12] MEDS: BuPROPion XL 300 MG TABCR PO SCH (13:43)
[2019-03-12] MEDS: CEROVITE ADV FORMULA TAB PO SCH (13:43)
[2019-03-12] MEDS: PANTOprazole 40 MG TAB PO SCH (13:43)
[2019-03-12] MEDS: FUROSEMIDE 80 MG TAB PO SCH ×2 (13:43→18:15)
[2019-03-12] MEDS ORDERED: ACETAMINOPHEN 1,000 MG/100 ML VIAL IV STA (13:44)
[2019-03-12] MEDS: HEPARIN SOD (PORCINE) 1000 UNIT/ML 10 ML VIAL IV SCH ×2 (13:44→13:45)
[2019-03-12] MEDS: LACTULOSE SYRUP 10 GM/15 ML BTL 473 ML PO SCH ×3 (13:44→20:48)
[2019-03-12] MEDS: TIOTROPIUM BROMIDE 5 PUFF/90 MCG INH INH SCH (13:45)
[2019-03-12] MEDS: BUDESONIDE/FORMOTEROL FUMARATE 160/4.5 60 PUFFS/INHALER INH SCH ×2 (13:45→20:49)
[2019-03-12] MEDS: ACETAMINOPHEN 325 MG TAB PO PRN (18:20)
[2019-03-12] MEDS: ROPINIROLE HCL 1 MG TABLET PO SCH (20:48)
[2019-03-13] MEDS: ACETAMINOPHEN 325 MG TAB PO PRN ×2 (04:31→08:28)
[2019-03-13] MEDS: LUBIPROSTONE 8 MCG CAP PO SCH ×2 (08:23→21:03)
[2019-03-13] MEDS: POLYETHYLENE (MIRALAX) 17 GM PACK PO SCH ×2 (08:23→21:05)
[2019-03-13] MEDS: DOCUSATE SODIUM 100 MG CAP PO SCH ×2 (08:23→21:03)
[2019-03-13] MEDS: FUROSEMIDE 80 MG TAB PO SCH ×2 (08:23→16:02)
[2019-03-13] MEDS: dilTIAZem HCL 180 MG CAPCR PO SCH (08:23)
[2019-03-13] MEDS: LEVOTHYROXINE SODIUM 50 MCG TABLET PO SCH (08:23)
[2019-03-13] MEDS: LACTULOSE SYRUP 10 GM/15 ML BTL 473 ML PO SCH ×3 (08:23→21:03)
[2019-03-13] MEDS: POTASSIUM CHLORIDE 20 MEQ TABCR PO SCH (08:23)
[2019-03-13] MEDS: BUDESONIDE/FORMOTEROL FUMARATE 160/4.5 60 PUFFS/INHALER INH SCH ×2 (08:24→21:02)
[2019-03-13] MEDS: PANTOprazole 40 MG TAB PO SCH (08:24)
[2019-03-13] MEDS: OMEGA-3 (PURIFIED FISH OIL) 1 GM CAP PO SCH ×2 (08:24→21:03)
[2019-03-13] MEDS: BuPROPion XL 300 MG TABCR PO SCH (08:24)
[2019-03-13] MEDS: TIOTROPIUM BROMIDE 5 PUFF/90 MCG INH INH SCH (08:24)
[2019-03-13] MEDS: CEROVITE ADV FORMULA TAB PO SCH (08:24)
[2019-03-13 08:35] LABS: Basophils # (auto) 0.05 K/uL (0-0.2); Basophils % (auto) 0.5 %; Eosinophils # (auto) 0.57 K/uL (0-0.5); Eosinophils % (auto) 6.3 %; Hematocrit (blood only) 38.3 % (37-47); Hemoglobin 13.3 g/dL (12.0-16.0); Immature Granulocytes # (auto) 0.01 K/uL (0.00-0.02); Immature Granulocytes % (auto) 0.1 %; Lymphocytes # (auto) 2.82 K/uL (1.2-3.4); Mean Corpuscular Hgb Conc 34.7 g/dL (32-36); Mean Corpuscular Volume 92.1 fL (80-100); Mean Platelet Volume 9.4 fL (7.4-10.4); Monocytes % (auto) 6.6 %; Neutrophils # (auto) 5.05 K/uL (1.4-6.5); Neutrophils % (auto) 55.5 %; Platelet Count 291 K/uL (130-400); RDW Coefficient of Variation 12.3 % (11.5-14.5); RDW Standard Deviation 41.8 fL (36.4-46.3); Red Blood Count 4.16 M/uL (4.2-5.4)
[2019-03-13 08:47] LABS: INR 1.3 (0.9-1.1); Prothrombin Time 13.2 Seconds (9.0-12.0)
[2019-03-13 08:56] LABS: Albumin Level 2.7 gm/dl (3.4-5.0); BUN Creatinine Ratio 9.4 (10-20); Calcium 9.1 mg/dl (8.5-10.1); Creatinine Clr Calc Pharmacy 20.7 ml/min; Est GFR (African American) 27.1; Est GFR (Non-African American) 23.4; Potassium 4.1 mmol/L (3.5-5.1)
[2019-03-13 08:59] LABS: Albumin Globulin Ratio 0.7 (0.9-2); Bilirubin,Total 0.5 mg/dl (0.2-1); Globulin 3.6 gm/dl (2.5-4.0); Total Protein 6.3 gm/dl (6.4-8.2)
--- NOTE | 2019-03-13 11:49 | Hospitalist Progress Note ---
Date of Service March 13, 2019 Assessment & Plan (1) Abdominal pain: Abdominal pain Constipation -abdominal discomfort primarily due to constipation: continue lactulose, continue home dose of Amitzia, give BID Miralax -CT abdomen: Fluid-filled mildly dilated small bowel without transition point. The findings may reflect an enteritis. A small bowel obstruction could appear similar although is considered less likely -there is no acute surgical interventions at this time, as general surgery recommends medical management for bowel motility -discussed with Dr. Rapp from Nephrology that with negative peritoneal cultures she does not suspect peritonitis. however, while in the hospital [facility], nephrology initiated hemodialysis in place of usual peritoneal dialysis -hemodialysis session completed on 03/12/19 -will try to minimize narcotics for pain control -will defer to nephrology on dialysis scheduling while patient remains in the hospital as she has not yet made bowel movement (2) Enterococcus UTI: -Outpatient culture from 03/04/19 growing enterococcus -patient prescribed fosfomycin as outpatient but did not hop picker. as per admitting team on 03/11/19; patient given 3 g as a single dose which is guideline for acute uncomplicated cystitis -inpatient urine culture on 03/11/19 with Gram positive cocci [place] Count >100,000 CFU/ml with low counts of mixed german, Sensitivities to Follow -no final urine culture results to date, will wait for speciation (3) ESRD needing dialysis: -while in the hospital setting, nephrology initiated hemodialysis in place of usual peritoneal dialysis -hemodialysis session completed on 03/12/19 -Continue home dose of Lasix (4) Peritoneal dialysis catheter in place: -Recently started on Peritoneal Dialysis and also hemodialysis fistula in place (5) Rectal prolapse: -ED discussed case with Dr. Ring (colorectal surgery at [place]) -no need for transfer at this time, patient is encouraged to keep follow-up appointment on 03/15/19 -however patient reports that she will re-schedule that appointment or seek alternative option because of distance and transportation reasons -a Saturday April 06, 2019 at 9:15AM [facility] appointment with colorectal surgeon Dr. Vinny Tubbs as been scheduled as a closer alternative for the patient (6) Atrial fibrillation: -Rate controlled on diltiazem, continue -supratherapeutic INR from coumadin use and low appetite -admission INR 6.8 on 03/11/19, coumadin held and INR remained elevated as 6.5 on 03/12/19, vitamin K 2.5 mg IV given on 03/12/19 -INR on 03/13/19 is 1.3. will give coumadin 3 mg daily and trend INR (7) COPD (chronic obstructive pulmonary disease): -Stable, no signs of acute exacerbation -Continue home inhalers (8) Depression: -Continue bupropion (9) Hypothyroidism: -Continue levothyroxine (10) DVT prophylaxis: -supratherapeutic INR from coumadin use and low appetite -admission INR 6.8 on 03/11/19, coumadin held and INR remained elevated as 6.5 on 03/12/19, vitamin K 2.5 mg IV given on 03/12/19 -INR on 03/13/19 is 1.3. will give coumadin 3 mg daily and trend INR Subjective Patient has not yet made bowel movement. abdomen pain present but patient tolerating discomfort without narcotics. no vomiting. patient does not want renal diet as she reports no problems with dietary phosphates in the past and would like regular diet. She hopes that with more appetite then she will make bowel movement. Patient has been ambulatory and encouraged to do so to help with bowel motility. no chest pain. no shortness of breath. no headache. no dizziness Physical Exam Constitutional: WD/WN, vitals as above Eyes: PERRL, conjunctivae normal, anicteric sclerae EOM intact bilaterally ENMT: external ear and nose normal, oropharynx normal Neck: trachea midline, no thyromegaly normal visual inspection Respiratory: normal respiratory effort, lungs clear to auscultation Cardiovascular: Rate/Rhythm: regular rate and regular rhythm Heart Sounds: + murmur Gastrointestinal (Abdomen): bowel sounds present, peritoneal dialysis catheter in place, abdomen with some tenderness to palpation Musculoskeletal: no cyanosis or clubbing, extremities motor strength 5/5 Head/Neck/Chest: normocephalic and head atraumatic Neurologic: PERRL, EOMI, accommodation nl, no face palsy, no dysarthria CN's II-XI intact bilaterally Psychiatric: A+Ox3, euthymic affect Results & Data Vital Signs (Past 12 Hours) Vital Signs Temp Pulse Pulse Resp BP Pulse Ox 03/13/19 08:02 36.8 C 85 20 125/66 98 03/12/19 23:53 36.6 C 82 20 108/49 L 95
[2019-03-13] MEDS ORDERED: WARFARIN SOD 3 MG TAB PO STA (11:54)
--- NOTE | 2019-03-13 12:59 | XRay Report ---
XR abdomen 2V w PA chest CLINICAL HISTORY: 68 years-old Female presenting with recent lower abdominal pain, rule out fecal imp action. TECHNIQUE: PA view of the chest and supine and upright views of the abdomen were obtained. COMPARISON: Chest x-ray from 09/13/[address] of abdomen and pelvis from 03/11/2019. FINDINGS: Atherosclerosis of the aortic arch. Cardiac silhouette normal in size. Lungs are hyperinflated. No fo luis opacity. No large effusion or pneumothorax. Cholecystectomy clips noted. Moderate stool burden in the colon. No significant stool burden in the r ectum. Nonobstructive bowel gas pattern. No gross pneumoperitoneum. A tube projects over the right pe lvis likely a peritoneal dialysis catheter. Allowing for bowel gas and stool, no calcifications to suggest nephrolithiasis. Evidence of kyphoplasty at T12. Osteopenia may be present. IMPRESSION: 1. Findings suggest emphysema. No focal infiltrate to suggest pneumonia. 2. No significant stool burden in the rectum. Moderate stool burden more proximally in the colon. Electronically signed by: John Landon M.D. 03/13/2019 12:58 PM
[2019-03-13] MEDS ORDERED: AMPICILLIN 1,000 MG in SODIUM CHLOR 0.9% AD-VAN 50 ML IV STA (15:10)
--- NOTE | 2019-03-13 15:33 | Surgery Progress Note ---
Date of Service March 13, 2019 Assessment & Plan (1) Rectal prolapse: 68-year-old female with peritoneal dialysis, chronic constipation, and rectal prolapse. She will need outpatient follow-up with colorectal surgery. She prefers surgery and they do come up a few times a month. Regarding her constipation, would recommend aggressive bowel regimen with MiraLAX. She is instructed to avoid straining to help prevent prolapse. Based on the x-ray does not appear she needs an enema at this time. Treatment for UTI per primary team. No acute surgical intervention, call with questions or concerns. Present on Admission?: Yes Subjective 68-year-old female on peritoneal dialysis with history of rectal prolapse and chronic constipation. Currently being treated for UTI. She does not have rectal prolapse currently at this time which is an improvement from the past few days. She has not had a bowel movement and denies flatus right now. She is tolerating a diet, though not eating much. No nausea or vomiting. Physical Exam Constitutional: WD/WN, vitals as above Gastrointestinal (Abdomen): normal bowel sounds, soft, nontender, no hepatosplenomegaly Peritoneal dialysis catheter in place Results & Data Vital Signs (Past 12 Hours) Vital Signs Temp Pulse Resp BP Pulse Ox 03/13/19 08:02 36.8 C 85 20 125/66 98 Laboratory Results Laboratory Results - last 24 hr 03/13/19 03/13/19 03/13/19 07:56 07:56 07:56 WBC 9.10 RBC 4.16 L Hgb 13.3 Hct 38.3 MCV 92.1 MCH 32.0 MCHC 34.7 RDW Std Deviation 41.8 RDW Coeff of Monisha 12.3 Plt Count 291 MPV 9.4 Immature Gran % (Auto) 0.1 Neut % (Auto) 55.5 Lymph % (Auto) 31.0 [place] % (Auto) 6.6 Eos % (Auto) 6.3 Baso % (Auto) 0.5 Immature Gran # (Auto) 0.01 Neut # (Auto) 5.05 Lymph # (Auto) 2.82 [place] # (Auto) 0.60 H Eos # (Auto) 0.57 H Baso # (Auto) 0.05 PT 13.2 H INR 1.3 H Sodium 137 Potassium 4.1 Chloride 101 Carbon Dioxide 27 Anion Gap 9.0 BUN 20 H Creatinine 2.09 H Est Cr Clr Drug Dosing 20.7 Est GFR ( Amer) 27.1 Est GFR (Non-Af Amer) 23.4 BUN/Creatinine Ratio 9.4 L Glucose 92 Calcium 9.1 Total Bilirubin 0.5 AST 14 L ALT 15 Alkaline Phosphatase 193 H Total Protein 6.3 L Albumin 2.7 L Globulin 3.6 Albumin/Globulin Ratio 0.7 L Diagnostic Findings XR abdomen 2V w PA chest CLINICAL HISTORY: 68 years-old Female presenting with recent lower abdominal pain, rule out fecal impaction. TECHNIQUE: PA view of the chest and supine and upright views of the abdomen were obtained. COMPARISON: Chest x-ray from 09/13/[address] of abdomen and pelvis from 03/11/2019. FINDINGS: Atherosclerosis of the aortic arch. Cardiac silhouette normal in size. Lungs are hyperinflated. No focal opacity. No large effusion or pneumothorax. Cholecystectomy clips noted. Moderate stool burden in the colon. No significant stool burden in the rectum. Nonobstructive bowel gas pattern. No gross pneumoperitoneum. A tube projects over the right pelvis likely a peritoneal dialysis catheter. Allowing for bowel gas and stool, no calcifications to suggest nephrolithiasis. Evidence of kyphoplasty at T12. Osteopenia may be present. IMPRESSION: 1. Findings suggest emphysema. No focal infiltrate to suggest pneumonia. 2. No significant stool burden in the rectum. Moderate stool burden more proximally in the colon.
[2019-03-13] MEDS ORDERED: WARFARIN SOD 3 MG TAB PO SCH (16:00)
[2019-03-13 16:52] LABS: Appearance Urine Clear (Clear); Bacteria Urine Automated Negative (Negative); Bilirubin Urine Negative (Negative); Blood Urine Negative (Negative); Color Urine Yellow; Glucose Urine UA Negative (Negative); Ketones Urine Negative (Negative); Leukocyte Esterase Urine 1+ (Negative); Nitrite Urine Negative (Negative); Protein Urine Negative (Negative); RBC Urine Automated 0-4 /hpf (0-4); Specific Gravity Urine 1.012 (1.000-1.030); Urobilinogen Urine Negative (Negative)
[2019-03-13] MEDS: ROPINIROLE HCL 1 MG TABLET PO SCH (21:04)
[2019-03-13] MEDS: TRAMADOL HCL 50 MG TABLET PO PRN (21:16)
[2019-03-14] MEDS: LEVOTHYROXINE SODIUM 50 MCG TABLET PO SCH (06:28)
[2019-03-14 07:18] LABS: INR 1.2 (0.9-1.1); Prothrombin Time 11.7 Seconds (9.0-12.0)
[2019-03-14] MEDS: LACTULOSE SYRUP 10 GM/15 ML BTL 473 ML PO SCH ×3 (07:47→20:44)
[2019-03-14] MEDS: LUBIPROSTONE 8 MCG CAP PO SCH ×2 (07:47→20:44)
[2019-03-14] MEDS: TIOTROPIUM BROMIDE 5 PUFF/90 MCG INH INH SCH (07:48)
[2019-03-14] MEDS: BUDESONIDE/FORMOTEROL FUMARATE 160/4.5 60 PUFFS/INHALER INH SCH ×2 (07:48→20:45)
[2019-03-14] MEDS: OMEGA-3 (PURIFIED FISH OIL) 1 GM CAP PO SCH ×2 (07:48→20:44)
[2019-03-14] MEDS: CEROVITE ADV FORMULA TAB PO SCH (07:48)
[2019-03-14] MEDS: DOCUSATE SODIUM 100 MG CAP PO SCH ×2 (07:48→20:42)
[2019-03-14] MEDS: BuPROPion XL 300 MG TABCR PO SCH (07:48)
[2019-03-14] MEDS: POTASSIUM CHLORIDE 20 MEQ TABCR PO SCH (07:48)
[2019-03-14] MEDS: PANTOprazole 40 MG TAB PO SCH (07:48)
[2019-03-14] MEDS: TRAMADOL HCL 50 MG TABLET PO PRN (07:48)
[2019-03-14] MEDS: FUROSEMIDE 80 MG TAB PO SCH ×2 (07:48→15:54)
[2019-03-14] MEDS: POLYETHYLENE (MIRALAX) 17 GM PACK PO SCH ×2 (07:48→20:44)
[2019-03-14] MEDS: dilTIAZem HCL 180 MG CAPCR PO SCH (07:55)
[2019-03-14] MEDS ORDERED: MAGNESIUM HYDROXIDE SUSP 30 ML UDC PO ONE (08:51)
[2019-03-14] MEDS ORDERED: MAGNESIUM HYDROXIDE SUSP 30 ML UDC PO PRN (08:52)
--- NOTE | 2019-03-14 09:02 | Hospitalist Progress Note ---
Date of Service March 14, 2019 Assessment & Plan (1) Abdominal pain: Abdominal pain Constipation -abdominal discomfort primarily due to constipation -CT abdomen: Fluid-filled mildly dilated small bowel without transition point. The findings may reflect an enteritis. A small bowel obstruction could appear similar although is considered less likely -there is no acute surgical interventions at this time, as general surgery recommends medical management for bowel motility -discussed with Dr. Rapp from Nephrology that with negative peritoneal cultures she does not suspect peritonitis. however, while in the hospital setting, nephrology initiated hemodialysis in place of usual peritoneal dialysis -hemodialysis session completed on 03/12/19 -while in the hospital patient has been off narcotics -patient's stool burden was assessed by abdomen/chest X ray on 03/13/19 -continue home dose of Amitzia, continue BID Miralax, switch from lactulose to milk of magnesia starting on 03/14/19, start senna (2) Enterococcus UTI: -Outpatient culture from 03/04/19 growing enterococcus -patient prescribed fosfomycin as outpatient but did not citrus picker. as per admitting team on 03/11/19; patient given 3 g as a single dose which is guideline for acute uncomplicated cystitis -patient's 03/11/19 urinary tract cultures returned as Enterococcus Faecalis -patient reports shortness of breath to intramuscular penicillin 30 years ago, she tolerated an empiric dose of 1000 mg x 1 of ampicillin on 03/14/19 without acute events -repeat 03/13/10 urine analysis is negative -will continue to monitor patient's abdominal discomfort clinically - could be possible that UTI has resolved - but ampicillin dosing usually given after hemodialysis sessions in patients with ESRD on hemodialysis and will re-assess after dialysis on 03/15/19 (3) ESRD needing dialysis: -while in the hospital setting, nephrology initiated hemodialysis in place of usual peritoneal dialysis -hemodialysis session completed on 03/12/19 -Continue home dose of Lasix -next hemodialysis session is 03/15/19Friday (4) Peritoneal dialysis catheter in place: -Recently started on Peritoneal Dialysis and also hemodialysis fistula in place (5) Rectal prolapse: -ED discussed case with Dr. Ring (colorectal surgery at [place]) -no need for transfer at this time, patient is encouraged to keep follow-up appointment on 03/15/19 -however patient reports that she will re-schedule that appointment or seek alternative option because of distance and transportation reasons -a Saturday April 06, 2019 at 9:15AM [facility] appointment with colorectal surgeon Dr. Vinny Tubbs as been scheduled as a closer alternative for the patient (6) Atrial fibrillation: -Rate controlled on diltiazem, continue -known heart murmur -supratherapeutic INR from coumadin use and low appetite -admission INR 6.8 on 03/11/19, coumadin held and INR remained elevated as 6.5 on 03/12/19, vitamin K 2.5 mg IV given on 03/12/19 -INR on 03/13/19 is 1.3 and give coumadin 3 mg -INR on 03/14/19 is 1.2 and will give coumadin 4 mg daily (7) COPD (chronic obstructive pulmonary disease): -Stable, no signs of acute exacerbation -Continue home inhalers (8) Depression: -Continue bupropion (9) Hypothyroidism: -Continue levothyroxine -check TSH (10) DVT prophylaxis: -ambulation, coumadin Subjective Patient continues to not have bowel movement. is is tolerating the abdominal discomfort. no vomiting. patient reported she at some of the regular diet. but poor appetite as she feels bloated. no chest pain. no shortness of breath. no lightheadedss. no dizziness. she is encouraged to continue to ambulate to help with bowel movements and she has been ambulating Physical Exam Constitutional: WD/WN, vitals as above Eyes: PERRL, conjunctivae normal, anicteric sclerae EOM intact bilaterally ENMT: external ear and nose normal, oropharynx normal Neck: trachea midline, no thyromegaly normal visual inspection Respiratory: normal respiratory effort, lungs clear to auscultation Cardiovascular: Rate/Rhythm: regular rate and regular rhythm Heart Sounds: + murmur Gastrointestinal (Abdomen): soft, peritoneal dialysis catheter in place, tende rness to palpation of left abdomen Musculoskeletal: no cyanosis or clubbing, extremities motor strength 5/5 Head/Neck/Chest: normocephalic and head atraumatic Neurologic: PERRL, EOMI, accommodation nl, no face palsy, no dysarthria CN's II-XI intact bilaterally Psychiatric: A+Ox3, euthymic affect Results & Data Vital Signs (Past 12 Hours) Vital Signs Temp Pulse Pulse Resp BP Pulse Ox 03/14/19 07:54 36.9 C 82 18 138/62 95 03/14/19 00:00 105/64 03/13/19 23:52 36.7 C 109 H 18 85/47 L 94
--- NOTE | 2019-03-14 10:16 | Surgery Progress Note ---
Date of Service March 14, 2019 Assessment & Plan (1) Rectal prolapse: 68-year-old female with peritoneal dialysis, chronic constipation, and rectal prolapse. She will need outpatient follow-up with colorectal surgery. She prefers surgery and they do come up a few times a month. Regarding her constipation, she is on her home regimen, may need more agresive bowel regimen, consider discussing with GI tomorrow. She is instructed to avoid straining to help prevent prolapse. Based on the x-ray yesterday does not appear she needs an enema at this time. Treatment for UTI per primary team. No acute surgical intervention, call with questions or concerns. Subjective 68-year-old female on peritoneal dialysis with history of rectal prolapse and chronic constipation. Currently being treated for UTI. She does not have rectal prolapse currently at this time which is an improvement from the past few days. She has not had a bowel movement but admits to some flatus. She is tolerating a diet, though not eating much. No nausea or vomiting. Physical Exam Constitutional: WD/WN, vitals as above Gastrointestinal (Abdomen): normal bowel sounds, soft, nontender, no hepatosplenomegaly Results & Data Vital Signs (Past 12 Hours) Vital Signs Temp Pulse Pulse Resp BP Pulse Ox 03/14/19 07:54 36.9 C 82 18 138/62 95 03/14/19 00:00 105/64 03/13/19 23:52 36.7 C 109 H 18 85/47 L 94
[2019-03-14] MEDS: SENNA 8.6 MG TAB PO SCH (10:17)
[2019-03-14] MEDS ORDERED: WARFARIN SOD 4 MG TAB PO SCH (16:00)
[2019-03-14] MEDS ORDERED: WARFARIN SOD 3 MG TAB PO SCH (16:00)
[2019-03-14] MEDS: ROPINIROLE HCL 1 MG TABLET PO SCH (20:42)
[2019-03-15] MEDS: LEVOTHYROXINE SODIUM 50 MCG TABLET PO SCH (05:43)
[2019-03-15 06:52] LABS: INR 1.1 (0.9-1.1); Prothrombin Time 11.6 Seconds (9.0-12.0)
[2019-03-15] MEDS ORDERED: HEPARIN SOD (PORCINE) 1000 UNIT/ML 10 ML VIAL IV ONE (07:48)
[2019-03-15] MEDS ORDERED: SODIUM CHLORIDE 0.9% 1000ML 1,000 ML IV PRN (07:48)
[2019-03-15] MEDS: OMEGA-3 (PURIFIED FISH OIL) 1 GM CAP PO SCH (08:56)
[2019-03-15] MEDS: CEROVITE ADV FORMULA TAB PO SCH (08:56)
[2019-03-15] MEDS: DOCUSATE SODIUM 100 MG CAP PO SCH (08:56)
[2019-03-15] MEDS: SENNA 8.6 MG TAB PO SCH (08:56)
[2019-03-15] MEDS: dilTIAZem HCL 180 MG CAPCR PO SCH (08:56)
[2019-03-15] MEDS: POTASSIUM CHLORIDE 20 MEQ TABCR PO SCH (08:56)
[2019-03-15] MEDS: TIOTROPIUM BROMIDE 5 PUFF/90 MCG INH INH SCH (08:56)
[2019-03-15] MEDS: FUROSEMIDE 80 MG TAB PO SCH ×2 (08:56→16:40)
[2019-03-15] MEDS: BuPROPion XL 300 MG TABCR PO SCH (08:56)
[2019-03-15] MEDS: BUDESONIDE/FORMOTEROL FUMARATE 160/4.5 60 PUFFS/INHALER INH SCH (08:56)
[2019-03-15] MEDS: PANTOprazole 40 MG TAB PO SCH (08:56)
[2019-03-15] MEDS: LUBIPROSTONE 8 MCG CAP PO SCH (08:56)
[2019-03-15] MEDS: LACTULOSE SYRUP 10 GM/15 ML BTL 473 ML PO SCH ×2 (08:56→13:29)
[2019-03-15] MEDS ORDERED: LAVAGE SOLUTION 4000ML PO SCH (09:00)
[2019-03-15] MEDS: HEPARIN SOD (PORCINE) 1000 UNIT/ML 10 ML VIAL IV SCH ×2 (13:29→13:30)
--- NOTE | 2019-03-15 14:39 | Hospitalist Progress Note ---
Date of Service March 15, 2019 Assessment & Plan (1) Abdominal pain: Abdominal pain Constipation -abdominal discomfort primarily due to constipation -CT abdomen: Fluid-filled mildly dilated small bowel without transition point. The findings may reflect an enteritis. A small bowel obstruction could appear similar although is considered less likely -there is no acute surgical interventions at this time, as general surgery recommends medical management for bowel motility -discussed with Dr. Rapp from Nephrology that with negative peritoneal cultures she does not suspect peritonitis. however, while in the hospital setting, nephrology initiated hemodialysis in place of usual peritoneal dialysis -hemodialysis session completed on 03/12/19 -while in the hospital patient has been off narcotics -patient's stool burden was assessed by abdomen/chest X ray on 03/13/19 -continue home dose of Amitzia, continue BID Miralax, switch from lactulose to milk of magnesia starting on 03/14/19, start senna -patient was able to make profuse bowel movements after dialysis session on 03/15/19; less abdominal discomfort and now the abdomen is not acutely tender -Discharge to home Patient will follow up at [facility] dialysis center on Friday03/17/19 at 3 PM for hemodialysis and should get hemodialysis every Friday/Friday/Friday Patient was seen as inpatient by Dr. Rapp of [facility] nephrology service at [facility] and she recommends that hemodialysis be continued for now instead of peritoneal dialysis due to abdominal discomforts and constipation Patient was able to make bowel movements after inpatient hemodialysis on 03/15/19. Patient should take bowel regimen as prescribed. Patient should avoid narcotic pain medications. Patient may take acetaminophen 325 mg every 6 hours as needed for pain for next 3 days. medications electronically transmitted to [facility] [place]. [id number], [address] [place] (2) Enterococcus UTI: -Outpatient culture from 03/04/19 growing enterococcus -patient prescribed fosfomycin as outpatient but did not supervisor opening and picking. as per admitting team on 03/11/19; patient given 3 g as a single dose which is guideline for acute uncomplicated cystitis -patient's 03/11/19 urinary tract cultures returned as Enterococcus Faecalis -patient reports shortness of breath to intramuscular penicillin 30 years ago, she tolerated an empiric dose of 1000 mg x 1 of ampicillin on 03/14/19 without acute events -repeat 03/13/10 urine analysis is negative -UTI considered to be treated as abdomen pain resolving with bowel movement and recent UA negative (3) ESRD needing dialysis: -while in the hospital setting, nephrology initiated hemodialysis in place of usual peritoneal dialysis -hemodialysis session completed on 03/12/19 -Continue home dose of Lasix -hemodialysis session completed on 03/15/19 (4) Peritoneal dialysis catheter in place: -Recently started on Peritoneal Dialysis and also hemodialysis fistula in place (5) Rectal prolapse: -ED discussed case with Dr. Ring (colorectal surgery at [place]) -no need for transfer at this time, patient is encouraged to keep follow-up appointment on 03/15/19 -however patient reports that she will re-schedule that appointment or seek alternative option because of distance and transportation reasons -Patient can either reschedule with colorectal surgeon with [facility] for initial appointment in regards to rectal prolapse or keep this scheduled appointment with [facility] colorectal surgeon: 04/06/2019 9:30 AM Provider Vinny Tubbs MD Department General Surgery, [facility] (6) Atrial fibrillation: -Rate controlled on diltiazem, continue -known heart murmur -supratherapeutic INR from coumadin use and low appetite -admission INR 6.8 on 03/11/19, coumadin held and INR remained elevated as 6.5 on 03/12/19, vitamin K 2.5 mg IV given on 03/12/19 -INR on 03/13/19 is 1.3 and give coumadin 3 mg -INR on 03/14/19 is 1.2 and given coumadin 4 mg -INR is 1.1 on 03/15/19 and will give coumadin 5 mg daily (Patient had supratherapeutic INR reversed on this hospital stay and patient will be discharged with coumadin 5 mg daily which is less than usual home dose of alternative between 5mg and 7.5 mg of couamdin. Patient should have follow up INR check with primary care doctor office 03/19/2019 11:40 AM Provider Vika Tidwell, Department [facility]) (7) COPD (chronic obstructive pulmonary disease): -Stable, no signs of acute exacerbation -Continue home inhalers (8) Depression: -Continue bupropion (9) Hypothyroidism: -Continue levothyroxine -TSH 4.1 (10) DVT prophylaxis: -ambulation, coumadin Discharge Diagnosis abdominal discomfort primarily due to constipation ; Enterococcus UTI (treated), ESRD needing hemodialysis, Atrial fibrillation, supratherapeutic INR (INR was reversed with vitamin K), continuing coumadin anticoagulation, History of rectal prolapse, Hypothyroidism Subjective patient was able to make profuse bowel movements after dialysis session on 03/15/19. less abdominal discomfort after dialysis session and now the abdomen is not acutely tender. no chest pain. no palpitations, no shortness of breath. no headache. heart rate around 100 bpm, chronic atrial fibrillation. we discussed discharge and outpatient plans Physical Exam Constitutional: WD/WN, vitals as above Eyes: PERRL, conjunctivae normal, anicteric sclerae EOM intact bilaterally ENMT: external ear and nose normal, oropharynx normal Neck: trachea midline, no thyromegaly normal visual inspection Respiratory: normal respiratory effort, lungs clear to auscultation Cardiovascular: Rate/Rhythm: regular rhythm and + irregularly irregular Heart Sounds: + murmur Gastrointestinal (Abdomen): Percussion/Palpation: abdomen soft (peritoneal dialysis catheter in place) Musculoskeletal: no cyanosis or clubbing, extremities motor strength 5/5 Head/Neck/Chest: normocephalic and head atraumatic Neurologic: PERRL, EOMI, accommodation nl, no face palsy, no dysarthria CN's II-XI intact bilaterally Psychiatric: A+Ox3, euthymic affect Results & Data Vital Signs (Past 12 Hours) Vital Signs Temp Pulse Pulse Pulse Resp BP BP 03/15/19 13:01 36.9 C 100 H 18 125/64 03/15/19 12:19 37.0 C 111 H 111 H 113/29 L 113/29 L 03/15/19 12:00 85 100/26 L 03/15/19 11:40 85 101/54 L 03/15/19 11:20 98 H 122/53 L 03/15/19 11:00 116 H 147/61 H 03/15/19 10:40 70 120/51 L 03/15/19 10:20 98 H 133/63 03/15/19 10:00 73 126/34 L 03/15/19 09:40 90 128/58 L 03/15/19 09:20 88 125/60 03/15/19 09:15 36.4 C L 87 87 118/56 L 03/15/19 07:00 36.8 C 77 18 123/68 Pulse Ox 03/15/19 13:01 95 03/15/19 12:19 03/15/19 12:00 03/15/19 11:40 03/15/19 11:20 03/15/19 11:00 03/15/19 10:40 03/15/19 10:20 03/15/19 10:00 03/15/19 09:40 03/15/19 09:20 03/15/19 09:15 03/15/19 07:00 93
--- NOTE | 2019-03-15 14:49 | Discharge Summary ---
Date of Service March 15, 2019 Admission HPI Per Admitting Provider 68-year-old female who presents to the ED with abdominal pain and rectal prolapse. Patient has ESRD, currently on peritoneal dialysis (recently switched from hemodialysis about 3 weeks ago). Patient reports that about 1 week after starting peritoneal dialysis, she developed lower abdominal pain which is been progressively getting worse. She also reports a history of rectal prolapse however it is not giving her problems for the past several years. Shortly after starting peritoneal dialysis, she reports her rectal prolapse returned and has been worsening over the past 2 weeks as well. She reports chronic constipation no bowel movement for the past 1 week. She was recently seen at [place] [facility] and was started on lactulose. She has had a poor appetite however denies nausea and vomiting. Also last week, patient was diagnosed with an enterococcus UTI. Due to penicillin allergy and renal impairment, patient was prescribed 1 dose of fosfomycin however she has not picked this up from the pharmacy yet. Patient reports ongoing urinary frequency and dysuria. She denies fevers and chills. She reports she has not had any trouble draining her peritoneal dialysis catheter and fluid has clear. Her last exchange was last evening. She denies chest pain shortness of breath. No lightheadedness, dizziness, diaphoresis, syncopal events. In the ED, CT ABD/pelvis is showing nonspecific proctitis and enteritis. SBO was also mentioned however is considered unlikely. Patient has remained hemodynamically stable, labs at baseline/unremarkable. UA suggest possible UTI. She was given IV Dilaudid and IV ceftriaxone. Admission Exam Per Admitting Provider Constitutional: WD/WN, vitals as above Eyes: PERRL, conjunctivae normal, anicteric sclerae ENMT: external ear and nose normal, oropharynx normal Respiratory: normal respiratory effort, lungs clear to auscultation Cardiovascular: Rate/Rhythm: regular rate and regular rhythm Vessels: normal peripheral pulses Extremities: + edema (+1 edema BLE) Gastrointestinal (Abdomen): Inspection/Auscultation: normal bowel sounds; abdomen not distended Percussion/Palpation: + abdomen tender (Mid to lower abdomen) and abdomen soft; no hepatosplenomegaly PD catheter in place to right abdomen, no surrounding erythema or drainage noted Musculoskeletal: no cyanosis or clubbing, extremities motor strength 5/5 Skin: no rashes, warm and dry Neurologic: PERRL, EOMI, accommodation nl, no face palsy, no dysarthria Psychiatric: A+Ox3, euthymic affect Principal Diagnosis abdominal discomfort primarily due to constipation ; Enterococcus UTI (treated), ESRD needing hemodialysis, Atrial fibrillation, supratherapeutic INR (INR was reversed with vitamin K), continuing coumadin anticoagulation, History of rectal prolapse, Hypothyroidism Discharge Exam Constitutional WD/WN, vitals as above Eyes PERRL, conjunctivae normal, anicteric sclerae EOM intact bilaterally ENMT external ear and nose normal, oropharynx normal Neck trachea midline, no thyromegaly normal visual inspection Respiratory normal respiratory effort, lungs clear to auscultation Cardiovascular Rate/Rhythm: regular rhythm and + irregularly irregular Heart Sounds: + murmur Gastrointestinal (Abdomen) Percussion/Palpation: abdomen soft (peritoneal dialysis catheter in place) Musculoskeletal no cyanosis or clubbing, extremities motor strength 5/5 Head/Neck/Chest: normocephalic and head atraumatic Neurologic PERRL, EOMI, accommodation nl, no face palsy, no dysarthria CN's II-XI intact bilaterally Psychiatric A+Ox3, euthymic affect Discharge Data Allergies Allergy/AdvReac Type Severity Reaction Status Date / Time famotidine Allergy Severe SHORTNESS Verified 03/11/19 12:02 OF BREATH Penicillins Allergy Severe SHORTNESS Verified 03/11/19 12:02 OF BREATH prednisone Allergy Severe rash Verified 03/11/19 12:02 deflazacort Allergy Intermediate HIVES TO Verified 03/11/19 12:02 ADVACORT Iodinated Contrast- Oral and Allergy Intermediate HIVES Verified 03/11/19 12:02 IV Dye pentazocine Allergy Intermediate HIVES Verified 03/11/19 12:02 Consultations 03/11/19 13:47 ED Decision to Admit Stat 03/11/19 17:40 Consult General Surgery Routine Consult Nephrology Routine Ordered Studies 03/11/19 11:08 CT abd pelvis wo con Stat Hospital Course (1) Abdominal pain: Abdominal pain Constipation -abdominal discomfort primarily due to constipation -CT abdomen: Fluid-filled mildly dilated small bowel without transition point. The findings may reflect an enteritis. A small bowel obstruction could appear similar although is considered less likely -there is no acute surgical interventions at this time, as general surgery recommends medical management for bowel motility -discussed with Dr. Rapp from Nephrology that with negative peritoneal cultures she does not suspect peritonitis. however, while in the hospital setting, nephrology initiated hemodialysis in place of usual peritoneal dialysis -hemodialysis session completed on 03/12/19 -while in the hospital patient has been off narcotics -patient's stool burden was assessed by abdomen/chest X ray on 03/13/19 -continue home dose of Amitzia, continue BID Miralax, switch from lactulose to milk of magnesia starting on 03/14/19, start senna -patient was able to make profuse bowel movements after dialysis session on 03/15/19; less abdominal discomfort and now the abdomen is not acutely tender -Discharge to home Patient will follow up at [facility] [place] Friday[place]/17/19 at 3 PM for hemodialysis and should get hemodialysis every Friday/Friday/Friday Patient was seen as inpatient by Dr. Rapp of [facility] nephrology service at [facility] and she recommends that hemodialysis be continued for now instead of peritoneal dialysis due to abdominal discomforts and constipation Patient was able to make bowel movements after inpatient hemodialysis on 03/15/19. Patient should take bowel regimen as prescribed. Patient should avoid narcotic pain medications. Patient may take acetaminophen 325 mg every 6 hours as needed for pain for next 3 days. medications electronically transmitted to [facility] [place]. [address], [address] [place], [place] (2) Enterococcus UTI: -Outpatient culture from 03/04/19 growing enterococcus -patient prescribed fosfomycin as outpatient but did not pickle pumper. as per admitting team on 03/11/19; patient given 3 g as a single dose which is guideline for acute uncomplicated cystitis -patient's 03/11/19 urinary tract cultures returned as Enterococcus Faecalis -patient reports shortness of breath to intramuscular penicillin 30 years ago, she tolerated an empiric dose of 1000 mg x 1 of ampicillin on 03/14/19 without acute events -repeat 03/13/10 urine analysis is negative -UTI considered to be treated as abdomen pain resolving with bowel movement and recent UA negative (3) ESRD needing dialysis: -while in the hospital setting, nephrology initiated hemodialysis in place of usual peritoneal dialysis -hemodialysis session completed on 03/12/19 -Continue home dose of Lasix -hemodialysis session completed on 03/15/19 (4) Peritoneal dialysis catheter in place: -Recently started on Peritoneal Dialysis and also hemodialysis fistula in place (5) Rectal prolapse: -ED discussed case with Dr. Ring (colorectal surgery at [place]) -no need for transfer at this time, patient is encouraged to keep follow-up appointment on 03/15/19 -however patient reports that she will re-schedule that appointment or seek alternative option because of distance and transportation reasons -Patient can either reschedule with colorectal surgeon with [facility] for initial appointment in regards to rectal prolapse or keep this scheduled appointment with [facility] colorectal surgeon: 04/06/2019 9:30 AM Provider Vinny Tubbs MD Department General Surgery, [facility] (6) Atrial fibrillation: -Rate controlled on diltiazem, continue -known heart murmur -supratherapeutic INR from coumadin use and low appetite -admission INR 6.8 on 03/11/19, coumadin held and INR remained elevated as 6.5 on 03/12/19, vitamin K 2.5 mg IV given on 03/12/19 -INR on 03/13/19 is 1.3 and give coumadin 3 mg -INR on 03/14/19 is 1.2 and given coumadin 4 mg -INR is 1.1 on 03/15/19 and will give coumadin 5 mg daily (Patient had supratherapeutic INR reversed on this hospital stay and patient will be discharged with coumadin 5 mg daily which is less than usual home dose of alternative between 5mg and 7.5 mg of couamdin. Patient should have follow up INR check with primary care doctor office 03/19/2019 11:40 AM Provider Vika Tidwell DO Department [facility]) (7) COPD (chronic obstructive pulmonary disease): -Stable, no signs of acute exacerbation -Continue home inhalers (8) Depression: -Continue bupropion (9) Hypothyroidism: -Continue levothyroxine -TSH 4.1 (10) DVT prophylaxis: -ambulation, coumadin Discharge Diagnosis abdominal discomfort primarily due to constipation ; Enterococcus UTI (treated), ESRD needing hemodialysis, Atrial fibrillation, supratherapeutic INR (INR was reversed with vitamin K), continuing coumadin anticoagulation, History of rectal prolapse, Hypothyroidism Total Time Total Time Spent Total Time Spent (In Minutes): 40 minutes Total Time Includes: Examination of the Patient, Discharge Planning, Medication Reconciliation and Communication With Other Providers Discharge Plan Discharge Items Patient Disposition: Home - Self-Care Reason For Visit: UTI, ABDOMINAL PAIN Discharge Diagnosis: abdominal discomfort primarily due to constipation ; Enterococcus UTI (treated), ESRD needing hemodialysis, Atrial fibrillation, supratherapeutic INR (INR was reversed with vitamin K), continuing coumadin anticoagulation, History of rectal prolapse, Hypothyroidism Condition: Good Discharge Goals: Decrease discomfort and Improve disease control Activity: Resume your previous activity Non-emergency contact: Primary Care Provider Call non-emergency contact if: you have any medication questions Follow-up/Referrals: Tiago Vinson MD [Primary Care Provider] - Diet: Regular and Dialysis Renal Addtl Provider Instructions: Discharge to home Patient will follow up at [facility] dialysis center on Friday03/17/19 at 3 PM for hemodialysis and should get hemodialysis every Friday/Friday/Friday Patient was seen as inpatient by Dr. Rapp of [facility] nephrology service at [facility] and she recommends that hemodialysis be continued for now instead of peritoneal dialysis due to abdominal discomforts and constipation Patient was able to make bowel movements after inpatient hemodialysis on 03/15/19. Patient should take bowel regimen as prescribed. Patient should avoid narcotic pain medications. Patient may take acetaminophen 325 mg every 6 hours as needed for pain for next 3 days. medications electronically transmitted to [facility] [place]. [address], [address] [place], [place] Patient had supratherapeutic INR reversed on this hospital stay and patient will be discharged with coumadin 5 mg daily which is less than usual home dose of alternative between 5mg and 7.5 mg of couamdin. Patient should have follow up INR check with primary care doctor office 03/19/2019 11:40 AM Provider Vika Tidwell DO Department [facility] Patient can either reschedule with colorectal surgeon with [facility] for initial appointment in regards to rectal prolapse or keep this scheduled appointment with [facility] colorectal surgeon: 04/06/2019 9:30 AM Provider Vinny Tubbs MD Department General Surgery, [facility] Prescriptions: New warfarin [Coumadin] 5 mg Tablet 5 mg PO DAILY@1600 30 Days Qty: 30 RF: 0 acetaminophen 325 mg tablet 325 mg PO Q6H PRN (Reason: pain) 4 Days Qty: 16 RF: 0 sennosides [Senokot] 8.6 mg Tablet 8.6 mg PO QAM 30 Days Qty: 30 RF: 0 docusate sodium 100 mg Capsule 100 mg PO BID 30 Days Qty: 60 RF: 0 Continued furosemide [Lasix] 80 mg Tablet 80 mg PO BID RF: 0 levothyroxine 50 mcg Tablet 50 mcg PO QAM RF: 0 lansoprazole 30 mg Capsule,Delayed Release(Dr/Ec) 30 mg PO QAM RF: 0 Spiriva with HandiHaler 18 mcg Capsule, W/Inhalation Device 1 cap INHALATION QAM RF: 0 Amitiza 24 mcg Capsule 24 mcg PO BID RF: 0 Symbicort 160-4.5 mcg/actuation Hfa Aerosol Inhaler 2 puff INHALATION BID RF: 0 omega 6-tcm-aux-fish oil [Fish Oil] 1,000 mg (120 mg-180 mg) Capsule 1,000 mg PO BID RF: 0 lactulose 10 gram/15 mL solution 15 ml PO HS RF: 0 potassium chloride 20 mEq tablet extended release 20 meq PO DAILY RF: 0 tizanidine 2 mg tablet 2 mg PO DAILY PRN (Reason: Muscle Spasm) RF: 0 diltiazem HCl 180 mg capsule,extended release 24hr 180 mg PO DAILY RF: 0 bupropion HCl 300 mg tablet extended release 24 hr 300 mg PO DAILY RF: 0 ropinirole 0.5 mg tablet 1.5 mg PO HS RF: 0 Women's 50 Plus Multivitamin 400 mcg-500 mg calcium-20 mcg Tablet 1 tab PO DAILY RF: 0 Discontinued ondansetron HCl [Zofran] 8 mg Tablet 8 mg PO BID PRN (Reason: Nausea) RF: 0 warfarin [Coumadin] 5 mg Tablet 5 mg PO MOWEFR RF: 0 warfarin [Coumadin] 5 mg Tablet 7.5 mg PO SUTUTHSA RF: 0 hydrocodone-acetaminophen 7.5-325 mg tablet 1 tab PO TID PRN (Reason: Pain) RF: 0 Stand-Alone Forms: [facility] Discharge Orders: Discharge Order (Routine); Ordered 03/15/19 Ordered By: Magdiel Garcia Admission Data Admit Date/Time: 03/11/19 15:47 Attending Provider: Magdiel Garcia Admit Provider: Demarcus Khanna Primary Care Provider: Tiago Vinson Other Providers: Alexander Dasilva ; Thalia Rapp ; Demarcus Khanna Service: Medical
[2019-03-15] MEDS: ACETAMINOPHEN 325 MG TAB PO PRN (15:23)
[2019-03-15] MEDS ORDERED: WARFARIN SOD 5 MG TAB PO SCH (16:00)
--- NOTE | 2019-03-15 20:13 | Nephrology Progress Note ---
Date of Service March 15, 2019 Assessment & Plan (1) ESRD needing dialysis: pt on alf dialysis >> ICHD x years then changed one month back to PD. has working avf; given constipation, would not court a peritonitis here. recommend resuming intermittent HD until bowel motility issues/ question of prolapse definitively addressed. peritonitis episode could complicate addressing prolapse/ constipation issues, also would take her temporarily off txplt list. her admission PD fluid culture not c/w peritonitis. her inr was supratherapeutic explaining many RBC in specimen -plan HD again today >> chemistries, volume status, bp, anemia all acceptable currently at least as of labs yesterday; she does 3 hr txs in center in past and will do again today -d/w hospitalist need to get chair time at [facility] for ICHD -rectal prolapse not a typical PD complication; not sure it relates here but reasonable to take steps to avoid peritonitis, evaluate proctitis/worsening prolapse issue and then reevaluate dialysis modality (2) Peritoneal dialysis catheter in place: needs weekly flush/dressing change - to be done by dialysis nurse (3) Constipation: in setting of concerns about rectal prolapse, proctitis, and enteritis -defer to primary service > minimizeor better fleets containing products in esrd -recommend lactulose, stool softeners, amitiza; miralax ok w/ careful lab monitoring; plan for today was aleshialy Subjective pt seen on rounds this am at 0800 and d/w dr payton. still no bm at that time; plan was to continue efforts to get her to move bowels. pt w/o n or abd pain different from baseline. no edema, no sob; willing to change to ICHD until bowel issues/rectal prolapse settled Review of Systems Review of Systems: All systems reviewed & are unremarkable except as noted in HPI & below Physical Exam Constitutional: well developed and well nourished; no acute distress up in chair on ra Eyes: EOM intact bilaterally ENMT: Ears: no external ear abnormality Nose: no external nose abnormality Mouth: + dry oral mucous membranes Neck: no nuchal rigidity Respiratory: normal respiratory effort Auscultation: + diminished lung sounds Cardiovascular: RRR, no murmur, no edema Extremities: + AV fistula (+ t/b) Gastrointestinal (Abdomen): Inspection/Auscultation: normal bowel sounds Percussion/Palpation: abdomen soft; abdomen nontender Musculoskeletal: Extremities: strength 5/5 throughout Skin: no rashes, warm and dry Neurologic: stewart,fluent speech Psychiatric: Orientation: alert and oriented x 3 Speech: normal rate/rhythm/volume of speech Affect: + anxious affect Insight: good insight Judgement: good judgement Results & Data Vital Signs (Past 12 Hours) Vital Signs Temp Pulse Pulse Pulse Pulse Resp BP 03/15/19 15:53 36.6 C 91 H 18 03/15/19 14:39 36.9 C 100 H 77 111 H 18 03/15/19 13:01 36.9 C 100 H 18 03/15/19 12:19 37.0 C 111 H 111 H 113/29 L 03/15/19 12:00 85 100/26 L 03/15/19 11:40 85 101/54 L 03/15/19 11:20 98 H 122/53 L 03/15/19 11:00 116 H 147/61 H 03/15/19 10:40 70 120/51 L 03/15/19 10:20 98 H 133/63 03/15/19 10:00 73 126/34 L 03/15/19 09:40 90 128/58 L 03/15/19 09:20 88 125/60 03/15/19 09:15 36.4 C L 87 87 118/56 L BP Pulse Ox 03/15/19 15:53 124/52 L 93 03/15/19 14:39 125/64 95 03/15/19 13:01 125/64 95 03/15/19 12:19 113/29 L 03/15/19 12:00 03/15/19 11:40 03/15/19 11:20 03/15/19 11:00 03/15/19 10:40 03/15/19 10:20 03/15/19 10:00 03/15/19 09:40 03/15/19 09:20 03/15/19 09:15
== END 2019-03-15 17:24 | disposition home or self-care (01) | DRG 393 ==
LOC: ED 10:27 → 2W 15:47